=== PATIENT | female | born 1980 | race Caucasian/White ===

== ENCOUNTER 2016-09-06 14:28 | Emergency (ER) | payer MEDICAID ==
--- NOTE | 2016-09-06 15:11 | EDM.PDOC ---
ED HPI LOWER BACK PAIN/INJURY - General Chief Complaint: Back Pain or Injury Stated Complaint: LOWER BACK PAIN Time Seen by Provider: 09/06/16 14:50 Source of Information: Reports: Patient History Limitations: Reports: No limitations - History of Present Illness INITIAL COMMENTS - FREE TEXT/NARRATIVE: HISTORY AND PHYSICAL: History of present illness: [Patient comes to the ER complaining of right low back pain since Saturday morning. She feels her symptoms are gradually worsening rather than improving. She's been using bio freeze, apply heating pad and taking 2 tablets of Tylenol every 6 hours. She continues to experience pain. She denies numbness or tingling. she has no weakness to her back or legs. Pain to her right hip as well. Decreased range of motion due to pain in her back. She denies fever and chills. No recent illness or infections. No recent trauma or falls. Denies any change in bowel or bladder function. Appetite has been normal. Is currently on her period.] Review of systems: As per history of present illness and below otherwise all systems reviewed and negative. Past medical history: As per history of present illness and as reviewed below otherwise noncontributory. Surgical history: As per history of present illness and as reviewed below otherwise noncontributory. Social history: No reported history of drug or alcohol abuse. Family history: As per history of present illness and as reviewed below otherwise noncontributory. Physical exam: HEENT: Atraumatic, normocephalic. Her teeth are decayed and in poor dentition. Oral mucous membranes are pink and moist. no tonsillar swelling erythema or exudate. neck supple, nontender, no lymphadenopathy. Lungs: Clear to auscultation, breath sounds equal bilaterally. Heart: S1S2, regular rate and rhythm. Abdomen: Soft, nondistended, nontender. Negative for costovertebral tenderness. Pelvis: Stable nontender. Genitourinary: Deferred. Rectal: Deferred. Back: Normal in appearance and free from suspicious appearing lesions and rashes. No spinal tenderness with palpation. Mild tenderness with palpation over upper lumbar musculature on the right side. Tender with palpation of her right hip. Decreased range of motion with flexion and extension of low back due to pain to right lumbar area. Pain with right lumbar rotation and lateral flexion. No Contralateral pain Extremities: Atraumatic, without deformity. Patellar reflexes are 2+ and equal bilaterally. Neurovascular unremarkable. Neuro: Awake, alert, oriented. Motor and sensory unremarkable throughout. Exam nonfocal. Diagnostics: [Urinalysis] Therapeutics: [Toradol 60mg IM, Norflex 60mg IM] Impression: [Low back pain] Plan: [Discussed with patient that her low back pain appears to be primarily muscular and that symptoms should resolve within a couple of weeks. Recommend cyclobenzaprine as needed for muscle spasm and diclofenac 3 times a day for inflammation. Written Rx's given for Cyclobenzaprine 10 mg #20 sig one by mouth 3 times a day when necessary spasm zero refills, diclofenac 50 mg #30 sig one by mouth 3 times a day with food, no refills. Recommend continuing normal daily activities and establish care with local PCP. All questions are answered and concerns are addressed.] Definitive disposition and diagnosis as appropriate pending reevaluation and review of above. - Related Data Allergies/ADRs: Allergies Allergy/AdvReac Type Severity Reaction Status Date / Time No Known Allergies Allergy Verified 09/06/16 14:36 Home Meds: Home Meds . 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 Musculoskeletal History: Reports: None Neurological History: Reports: None Psychiatric History: Reports: None Endocrine/Metabolic History: Reports: None Hematologic History: Reports: None Immunologic History: Reports: None Oncologic (Cancer) History: Reports: None Dermatologic History: Reports: None - Infectious Disease History Infectious Disease History: Reports: None - Past Surgical History Head Surgeries/Procedures: Reports: None Social & Family History - Family History Family Medical History: Noncontributory - Tobacco Use Smoking Status *Q: Never Smoker Second Hand Smoke Exposure: Yes - Caffeine Use Caffeine Use: Reports: Coffee Caffeine Use Comment: 2cup/day - Recreational Drug Use Recreational Drug Use: No ED ROS GENERAL - Review of Systems Review Of Systems: ROS reveals no pertinent complaints other than HPI. ED EXAM,LOWER BACK PAIN/INJURY - Physical Exam Exam: See Below Course - Vital Signs Last Recorded V/S: Last Vital Signs Temp 98.1 F 09/06/16 14:30 Pulse 74 09/06/16 14:30 Resp 16 09/06/16 14:30 BP 116/66 09/06/16 14:30 Pulse Ox 100 09/06/16 14:30 - Orders/Labs/Meds Orders: Active Orders 24 hr Category Date Time Status Orphenadrine [Norflex] Med 09/06/16 15:45 Active 60 mg IM Q12H Medication Orders Orphenadrine Citrate (Norflex) 60 mg IM Q12H BREANNA Labs: Laboratory Tests 09/06/16 Range/Units 15:10 Urine Color YELLOW Urine Appearance CLEAR Urine pH 7.0 (5.0-8.0) Ur Specific [place] 1.020 (1.001-1.035) Urine Protein NEGATIVE (NEGATIVE) mg/dL Urine Glucose (UA) NEGATIVE (NEGATIVE) mg/dL Urine Ketones TRACE H (NEGATIVE) mg/dL Urine Occult Blood LARGE H (NEGATIVE) Urine Nitrite NEGATIVE (NEGATIVE) Urine Bilirubin NEGATIVE (NEGATIVE) Urine Urobilinogen 1.0 (<2.0) EU/dL Ur Leukocyte Esterase NEGATIVE (NEGATIVE) Urine RBC 50-60 (0-2/HPF) Urine WBC 0-1 (0-5/HPF) Ur Epithelial Cells FEW (NONE-FEW) Amorphous Sediment LIGHT (NEGATIVE) Urine Bacteria FEW (NEGATIVE) Meds: Medications Generic Name Dose Route Start Last Admin Trade Name Freq PRN Reason Stop Dose Admin Orphenadrine Citrate 60 mg 09/06/16 15:45 Norflex IM Q12H BREANNA Discontinued Medications Generic Name Dose Route Start Last Admin Trade Name Freq PRN Reason Stop Dose Admin Ketorolac Tromethamine 60 mg 09/06/16 15:44 Toradol IM 09/06/16 15:45 ONETIME ONE Departure - Departure Time of Disposition: 15:50 Disposition: Home, Self-Care 01 Condition: good Clinical Impression: Low back pain Qualifiers: Chronicity: acute Back pain laterality: right Sciatica presence: without sciatica Qualified Code(s): M54.5 - Low back pain Referrals: PCP,None [Primary Care Provider] - Forms: ED Department Discharge Additional Instructions: The following information is given to patients seen in the emergency department who are being discharged to home. This information is to outline your options for follow-up care. We provide all patients seen in our emergency department with a follow-up referral. The need for follow-up, as well as the timing and circumstances, are variable depending upon the specifics of your emergency department visit. If you don't have a primary care physician on staff, we will provide you with a referral. We always advise you to contact your personal physician following an emergency department visit to inform them of the circumstance of the visit and for follow-up with them and/or the need for any referrals to a consulting specialist. The emergency department will also refer you to a specialist when appropriate. This referral assures that you have the opportunity for follow-up care with a specialist. All of these measure are taken in an effort to provide you with optimal care, which includes your follow-up. Under all circumstances we always encourage you to contact your private physician who remains a resource for coordinating your care. When calling for follow-up care, please make the office aware that this follow-up is from your recent emergency room visit. If for any reason you are refused follow-up, please contact the [facility] emergency department at and asked to speak to the emergency department charge nurse. [facility] [address] [place] [address] Establish care with a local provider at the clinic listed above. Followup there in 48-72 hours. Take diclofenac 3 times a day with food and Alternate with Tylenol in between doses. Cyclobenzaprine as a muscle relaxer may make you drowsy. Use only as needed for muscle spasm. Return to ER as needed as discussed. - My Orders Last 24 Hours: My Active Orders 09/06/16 15:45 Orphenadrine [Norflex] 60 mg IM Q12H - Assessment/Plan Last 24 Hours: My Active Orders 09/06/16 15:45 Orphenadrine [Norflex] 60 mg IM Q12H
[2016-09-06] MEDS ORDERED: Ketorolac 60 MG/2 ML SDV IM ONE (15:44)
[2016-09-06 16:26] VITALS: BP 100/51
== END 2016-09-06 16:24 | disposition home or self-care (01) ==
LOC: MW.ED 14:28
DX: M54.5 Low back pain (principal); M25.551 Pain in right hip
CPT/HCPCS: 81001; 96372; 99283; J1885; J2360

== ENCOUNTER 2017-11-06 17:42 | Emergency (ER) | payer MEDICAID ==
--- NOTE | 2017-11-06 18:42 | EDM.PDOC ---
ED HPI GENERAL MEDICAL PROBLEM - General Chief Complaint: ENT Problem Stated Complaint: SORE THROAT/PAIN/PRESSURE FACE/HEAD Time Seen by Provider: 11/06/17 17:45 Source of Information: Reports: Patient History Limitations: Reports: No Limitations - History of Present Illness INITIAL COMMENTS - FREE TEXT/NARRATIVE: HISTORY AND PHYSICAL: History of present illness: Patient is a 37-year-old female who presents to the emergency room today with complaints of sore throat, left ear pain, sinus pressure and subjective fevers 2 weeks. She states she has used [id number] products without any relief. Denies any chest pain, shortness of breath, abdominal pain, nausea, vomiting, diarrhea or constipation. States she has been eating and drinking appropriately. Review of systems: As per history of present illness and below otherwise all systems reviewed and negative. Past medical history: As per history of present illness and as reviewed below otherwise noncontributory. Surgical history: As per history of present illness and as reviewed below otherwise noncontributory. Social history: No reported history of drug or alcohol abuse. Family history: As per history of present illness and as reviewed below otherwise noncontributory. Physical exam: General: Developed and well-nourished 37 rolled female. Nontoxic appearing and in no acute distress. HEENT: Atraumatic, normocephalic, pupils equal and reactive bilaterally, negative for conjunctival pallor or scleral icterus, mucous membranes moist, erythema noted to throat without exudate, neck supple, nontender, trachea midline. Tenderness to the maxillary and frontal sinus cavities bilaterally. Mild lymphadenopathy to the mandibular chain bilaterally. No mastoid tenderness. No drooling or trismus noted. No meningeal signs Lungs: Clear to auscultation, breath sounds equal bilaterally, chest nontender. Heart: S1S2, regular rate and rhythm without overt murmur Abdomen: Soft, nondistended, nontender. Negative for masses or hepatosplenomegaly. Negative for costovertebral tenderness. Pelvis: Stable nontender. Genitourinary: Deferred. Rectal: Deferred. Skin: Intact, warm, dry. No lesions or rashes noted. Extremities: Atraumatic, negative for cords or calf pain. Neurovascular unremarkable. Neuro: Awake, alert, oriented. Cranial nerves II through XII unremarkable. Cerebellum unremarkable. Motor and sensory unremarkable throughout. Exam nonfocal. Notes: Due to patient's longevity of symptoms and physical examination and will treat her for sinusitis with Augmentin. She is requesting something for pain. At this time I will give her a limited amount Tylenol with codeine for nighttime use. Medication education was given. She voices understanding and is agreeable to plan of care. She denies any further questions at this time. Diagnostics: None Therapeutics: None Impression: Sinusitis Plan: 1. Please take your antibiotic as prescribed. Warm salt water gargle 3-4 times daily. 2. You may use [id number] Mucinex. Do not take the Tylenol with Codiene when needing to be functioning outside the house as it can cause drowsiness. Do not drive with this medication. 3. Follow-up with your primary caregiver in the next 1-2 days. Return to the ED as needed and as discussed. Definitive disposition and diagnosis as appropriate pending reevaluation and review of above. 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 Musculoskeletal History: Reports: None Neurological History: Reports: None Psychiatric History: Reports: None Endocrine/Metabolic History: Reports: None Hematologic History: Reports: None Immunologic History: Reports: None Oncologic (Cancer) History: Reports: None Dermatologic History: Reports: None - Infectious Disease History Infectious Disease History: Reports: None - Past Surgical History Head Surgeries/Procedures: Reports: None Social & Family History - Family History Family Medical History: Noncontributory - Tobacco Use Smoking Status *Q: Never Smoker Second Hand Smoke Exposure: Yes - Caffeine Use Caffeine Use: Reports: Coffee Caffeine Use Comment: 2cup/day - Recreational Drug Use Recreational Drug Use: No ED ROS ENT - Review of Systems Review Of Systems: ROS reveals no pertinent complaints other than HPI. ED EXAM, ENT - Physical Exam Exam: See Below (See dictation) Course - Vital Signs Last Recorded V/S: Last Vital Signs Temp 98.2 F 11/06/17 19:05 Pulse 77 11/06/17 19:05 Resp 18 11/06/17 19:05 BP 99/59 L 11/06/17 19:05 Pulse Ox 100 11/06/17 19:05 Departure - Departure Time of Disposition: 18:41 Disposition: Home, Self-Care 01 Clinical Impression: Sinusitis Qualifiers: Sinusitis location: unspecified location Chronicity: acute Recurrence: non- recurrent Qualified Code(s): J01.90 - Acute sinusitis, unspecified - Discharge Information Instructions: Sinusitis, Adult, [id number] Referrals: Estevan Calloway MD [Primary Care Provider] - Forms: ED Department Discharge Additional Instructions: The following information is given to patients seen in the emergency department who are being discharged to home. This information is to outline your options for follow-up care. We provide all patients seen in our emergency department with a follow-up referral. The need for follow-up, as well as the timing and circumstances, are variable depending upon the specifics of your emergency department visit. If you don't have a primary care physician on staff, we will provide you with a referral. We always advise you to contact your personal physician following an emergency department visit to inform them of the circumstance of the visit and for follow-up with them and/or the need for any referrals to a consulting specialist. The emergency department will also refer you to a specialist when appropriate. This referral assures that you have the opportunity for follow-up care with a specialist. All of these measure are taken in an effort to provide you with optimal care, which includes your follow-up. Under all circumstances we always encourage you to contact your private physician who remains a resource for coordinating your care. When calling for follow-up care, please make the office aware that this follow-up is from your recent emergency room visit. If for any reason you are refused follow-up, please contact the [facility] Emergency Department at and asked to speak to the emergency department charge nurse. [facility] Primary Care [address] [place] [id number] 1. Please take your antibiotic as prescribed. Warm salt water gargle 3-4 times daily. 2. You may use [id number] Mucinex. Do not take the Tylenol with Codiene when needing to be functioning outside the house as it can cause drowsiness. Do not drive with this medication. 3. Follow-up with your primary caregiver in the next 1-2 days. Return to the ED as needed and as discussed.
[2017-11-06 19:06] VITALS: BP 99/59
== END 2017-11-06 19:09 | disposition home or self-care (01) ==
LOC: MW.ED 17:42
DX: J01.90 Acute sinusitis, unspecified (principal)
CPT/HCPCS: 99282

== ENCOUNTER 2018-03-31 08:02 | Observation (INO) | payer MEDICAID ==
[2018-03-30 13:09] LABS: CHLORIDE,CL 104 mmol/L (98-107); SODIUM,NA 140 mmol/L (136-145)
[~2018-03-31 08:02] MED LIST: Lactated Ringers 1,000 ML IV SCH; Sodium Chloride 0.9% 10 ML Syringe FLUSH PRN; Sodium Chloride 0.9% 2.5 ML Syringe FLUSH PRN
[2018-03-31] MEDS ORDERED: Midazolam 1 MG/ML 2 ML SDV ONE (08:35)
[2018-03-31] MEDS ORDERED: Propofol 200 MG/20 ML SDV ONE (08:35)
[2018-03-31] MEDS ORDERED: fentaNYL 250 MCG/5 ML SDV ONE (08:35)
[2018-03-31] MEDS ORDERED: Succinylcholine 200 MG/10 ML MDV ONE (08:47)
[2018-03-31] MEDS ORDERED: Rocuronium 10 MG/ML 10 ML Syringe ONE (08:47)
[2018-03-31] MEDS ORDERED: Ondansetron 4 MG/2 ML SDV ONE (08:48)
[2018-03-31] MEDS ORDERED: Dexamethasone 4 MG/ML 5 ML MDV ONE (08:48)
[2018-03-31] MEDS ORDERED: ceFAZolin 1 GM in Premix Bag 1 BAG IV ONE (09:00)
--- NOTE | 2018-03-31 09:07 | PCM.PREANE ---
Preanesthetic Assessment - Procedure Proposed Procedure: LAVH, SO, and Cystoscopy - Anesthesia/Transfusion/Family Hx Anesthesia History: Prior Anesthesia Without Reaction Family History of Anesthesia Reaction: No Transfusion History: Prior Transfusion Without Reaction Additional History: blood transfusion 03-26-18 units - Review of Systems General: No Symptoms Pulmonary: No Symptoms Cardiovascular: No Symptoms (since her transfusions), Other (anemia - treated) Gastrointestinal: No Symptoms Neurological: No Symptoms - Physical Assessment NPO Status Date: 03/30/18 NPO Status Time: 22:00 O2 Sat by Pulse Oximetry: 99 Respiratory Rate: 16 Vital Signs: Last Vital Signs Temp 97.3 F 03/31/18 08:20 Pulse 62 03/31/18 08:20 Resp 16 03/31/18 08:20 BP 101/56 L 03/31/18 08:20 Pulse Ox 99 03/31/18 08:20 Height: 5 ft 5 in Weight: 127 lb ASA Class: 2 Mental Status: Alert & Oriented x3 Airway Class: Mallampati = 2 Dentition: Reports: Caries Thyro-Mental Finger Breadths: 3 Mouth Opening Finger Breadths: 3 (recessive lower frontal teeth) Lungs: Clear to Auscultation, Normal Respiratory Effort Cardiovascular: Regular Rate, Regular Rhythm, No Murmurs - Lab Values: Laboratory Last Values WBC 5.58 K/uL (4.0-11.0) 03/30/18 12:42 RBC 5.56 M/uL (4.30-5.90) 03/30/18 12:42 Hgb 12.4 g/dL (12.0-16.0) 03/30/18 12:42 Hct 40.2 % (36.0-46.0) 03/30/18 12:42 MCV 72.3 fL (80.0-98.0) L 03/30/18 12:42 MCH 22.3 pg (27.0-32.0) L 03/30/18 12:42 MCHC 30.8 g/dL (31.0-37.0) L 03/30/18 12:42 RDW Std Deviation 55.3 fl (28.0-62.0) 03/30/18 12:42 RDW Coeff of Swapnil 22 % (11.0-15.0) H 03/30/18 12:42 Plt Count 237 K/uL (150-400) 03/30/18 12:42 MPV 9.50 fL (7.40-12.00) 03/30/18 12:42 Nucleated RBC % 0.0 /100WBC 03/30/18 12:42 Nucleated RBCs # 0 K/uL 03/30/18 12:42 Sodium 140 mmol/L (136-145) 03/30/18 12:42 Potassium 4.0 mmol/L (3.5-5.1) 03/30/18 12:42 Chloride 104 mmol/L (98-107) 03/30/18 12:42 Carbon Dioxide 28.5 mmol/L (21.0-32.0) 03/30/18 12:42 BUN 9 mg/dL (7.0-18.0) 03/30/18 12:42 Creatinine 0.6 mg/dL (0.6-1.0) 03/30/18 12:42 Est Cr Clr Drug Dosing TNP 03/30/18 12:42 Estimated GFR (MDRD) > 60.0 ml/min 03/30/18 12:42 Glucose 70 mg/dL (74-106) L 03/30/18 12:42 Calcium 9.3 mg/dL (8.5-10.1) 03/30/18 12:42 HCG, Qual NEGATIVE (NEG) 03/30/18 12:42 Blood Type O POSITIVE 03/30/18 12:42 Antibody Screen NEGATIVE 03/30/18 12:42 - Allergies Allergies/Adverse Reactions: Allergies Allergy/AdvReac Type Severity Reaction Status Date / Time No Known Allergies Allergy Verified 03/31/18 08:26 - Blood Blood Available: Yes Product(s) Available: PRBC (T and S) - Anesthesia Plan Pre-Op Medication Ordered: None - Acknowledgements Anesthesia Type Planned: General Anesthesia (OET) Pt an Appropriate Candidate for the Planned Anesthesia: Yes Alternatives and Risks of Anesthesia Discussed w Pt/Guardian: Yes Pt/Guardian Understands and Agrees with Anesthesia Plan: Yes PreAnesthesia Questionnaire - Past Health History Medical/Surgical History: Denies Medical/Surgical History HEENT History: Reports: None Other HEENT History: wears glasses Cardiovascular History: Reports: None Respiratory History: Reports: None Gastrointestinal History: Reports: None Genitourinary History: Reports: Pyelonephritis FAMILY SPECIALIST History: Reports: None Musculoskeletal History: Reports: None Neurological History: Reports: None Psychiatric History: Reports: None Endocrine/Metabolic History: Reports: None Hematologic History: Reports: None Immunologic History: Reports: None Oncologic (Cancer) History: Reports: None Dermatologic History: Reports: None - Infectious Disease History Infectious Disease History: Reports: None - Past Surgical History Head Surgeries/Procedures: Reports: None Female Surgical History: Reports: Breast Biopsy - SUBSTANCE USE Smoking Status *Q: Never Smoker Recreational Drug Use History: No - HOME MEDS Home Medications: Home Meds Iron 1 tab PO DAILY 03/27/18 [History] Vitamin C With Zinc 1 tab PO DAILY 03/27/18 [History] - CURRENT (IN HOUSE) MEDS Current Meds: Current Medications Cefazolin Sodium/Dextrose 1 gm (/ Premix) 50 mls @ 100 mls/hr IV ONETIME ONE Stop: 03/31/18 09:29 Lactated Ringer's (Ringers, Lactated) 1,000 mls @ 125 mls/hr IV ASDIRECTED BREANNA Last Admin: 03/31/18 08:28 Dose: 125 mls/hr Sodium Chloride (Saline Flush) 10 ml FLUSH ASDIRECTED PRN PRN Reason: Keep Vein Open Sodium Chloride (Saline Flush) 2.5 ml FLUSH ASDIRECTED PRN PRN Reason: Keep Vein Open Discontinued Medications Dexamethasone (Dexamethasone) Confirm Administered Dose 20 mg .ROUTE .STK-MED ONE Stop: 03/31/18 08:49 Fentanyl (Sublimaze) Confirm Administered Dose 250 mcg .ROUTE .STK-MED ONE Stop: 03/31/18 08:36 Lidocaine HCl (Xylocaine-Mpf 1%) Confirm Administered Dose 5 mls @ as directed .ROUTE .STK-MED ONE Stop: 03/31/18 08:42 Midazolam HCl (Versed 1 Mg/Ml) Confirm Administered Dose 2 mg .ROUTE .STK-MED ONE Stop: 03/31/18 08:36 Ondansetron HCl (Zofran) Confirm Administered Dose 4 mg .ROUTE .STK-MED ONE Stop: 03/31/18 08:49 Propofol (Diprivan 20 Ml) Confirm Administered Dose 200 mg .ROUTE .STK-MED ONE Stop: 03/31/18 08:36 Rocuronium [place] (Zemuron) Confirm Administered Dose 100 mg .ROUTE .STK-MED ONE Stop: 03/31/18 08:48 Succinylcholine Chloride (Quelicin) Confirm Administered Dose 200 mg .ROUTE .STK -MED ONE Stop: 03/31/18 08:48
[2018-03-31] MEDS ORDERED: Methylene Blue 50 MG/10 ML Ampule ONE (09:24)
[2018-03-31] MEDS ORDERED: Bupivacaine 0.25% 10 ML SDV ONE (09:24)
[2018-03-31] MEDS ORDERED: Glycopyrrolate 0.2 MG/ML SDV ONE (09:42)
[2018-03-31] MEDS ORDERED: Neostigmine Methylsulfate 1 MG/ML 5 ML Syringe ONE (09:42)
[2018-03-31] MEDS ORDERED: fentaNYL 100 MCG/2 ML SDV IVPUSH PRN (10:36)
[2018-03-31] MEDS ORDERED: ePHEDrine 50 MG/ML SDV ONE (11:40)
[2018-03-31] MEDS ORDERED: Furosemide 40 MG/4 ML VIAL ONE ×2 (11:47→16:36)
[2018-03-31] MEDS ORDERED: Fluorescein 5 ML Vial ONE (11:47)
[2018-03-31] MEDS ORDERED: Iopamidol 408 MG/ML 50 ML SDV ONE (12:47)
[2018-03-31] MEDS ORDERED: HYDROmorphone 2 MG/ML SDV ONE (12:58)
[2018-03-31] MEDS ORDERED: Sodium Chloride 0.9% 20 ML ONE (12:59)
[2018-03-31] MEDS ORDERED: ceFAZolin 1 GM Vial ONE (13:48)
[2018-03-31] MEDS ORDERED: Phenylephrine/Normal Saline 100 MCG/ML 10 ML Syringe ONE (14:14)
[2018-03-31] MEDS ORDERED: Ondansetron 4 MG/2 ML SDV IVPUSH PRN (17:55)
[2018-03-31] MEDS ORDERED: Promethazine 25 MG/ML SDV IM PRN (17:55)
[2018-03-31] MEDS ORDERED: Morphine 4 MG/ML Syringe IVPUSH PRN (17:55)
--- NOTE | 2018-03-31 18:09 | PCM.OPNOTE ---
- General Post-Op/Procedure Note Date of Surgery/Procedure: 03/31/18 Operative Procedure(s): Laparoscopic assisted Vaginal hysterectomy with bilateral salpingectomy and Cystoscopy Findings: Bulky10 weeks size uterus, mal rotated to the patient's left. Normal ovaries and tubes bilaterally No efflux of dye from right ureteric orifice on cytoscopy- Intraop Urology consult by Dr Naidu. Please refer to his documentation for procedures performed by him Pre Op Diagnosis: Menorrhagia. Uterine myoma Post-Op Diagnosis: Same Anesthesia Technique: General ET Tube Primary Surgeon: Rhonda Ansari Asphalt Screed Operator: Corry Bland Pathology: Uterus, Cervix and tubes Fluid Replacement, Intraop: 4,100 EBL in mLs: 150 Complications: Right ureteric injury Condition: Good Free Text/Narrative:: Intake & Output 03/31/18 03/31/18 03/31/18 06:59 14:59 22:59 Output Total 250 Balance -250
[2018-03-31] MEDS ORDERED: Ketorolac 30 MG/ML SDV ONE (18:18)
[2018-03-31] MEDS: Ketorolac 30 MG/ML SDV IVPUSH SCH ×2 (18:20→23:09)
--- NOTE | 2018-03-31 18:21 | PCM.POSTAN ---
POST ANESTHESIA ASSESSMENT - MENTAL STATUS Mental Status: Alert, Oriented - VITAL SIGNS SaO2: 92 (Rm air) - RESPIRATORY Respiratory Status: Respiratory Rate WNL, Airway Patent, O2 Saturation Stable - CARDIOVASCULAR CV Status: Pulse Rate WNL, Blood Pressure Stable - GASTROINTESTINAL GI Status: No Symptoms - POST OP HYDRATION Hydration Status: Adequate & Stable
[2018-03-31] MEDS: Lactated Ringers 1,000 ML IV SCH (19:55)
[2018-03-31] MEDS: ceFAZolin 1 GM in Premix Bag 1 BAG IV SCH (19:56)
--- NOTE | 2018-03-31 22:41 | PCM.SN ---
- Free Text/Narrative Note: Patient evaluated at bedside. Sleepy. Reports that her pain is well controlled, just feeling a bit dizzy and feeling slightly nauseous. Declined antiemetic. Vital signs stable. Adequate urine output- blood tinged. Briefly reviewed procedures performed, outcomes and expected hospital course. Patient has no questions at this time. Will continue current post care
[2018-04-01] MEDS: ceFAZolin 1 GM in Premix Bag 1 BAG IV SCH ×2 (01:10→17:53)
--- NOTE | 2018-04-01 01:31 | OR ---
SURGEON: Kevin Naidu M.D. DATE OF PROCEDURE: 03/31/2018 PREOPERATIVE DIAGNOSIS: Ureteral injury. POSTOPERATIVE DIAGNOSIS: Ureteral injury. PROCEDURE PERFORMED: Repair of ureteral injury plus cystoscopy. DESCRIPTION OF PROCEDURE: The patient was already under anesthesia. She had LAVH. There was nothing coming out of the right ureter. So, I was asked to come in and consult. I did a cystoscopy and could not get anything through the right ureter. 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 I did right retrograde pyelogram, which showed the extravasation and nothing into the proximal segment of ureter, so the conclusion was the ureter was transected. At that point, the decision was made to go ahead and explore the pelvis and repair the ureter, so the incision was done in a Pfannenstiel-type incision. The fascia was opened in the midline. The right pelvis was explored. The ureter was identified and indeed was transected. The distal end of the ureter could not be identified until the bladder was opened, and the ureter was cannulated, but then went only a short distance, and it would have taken additional time and effort to dissect the ureter away from the base of the bladder, so I decided to do ureteral reimplantation in the base of the bladder with the posterior wall of the bladder on the right side. The bladder was perforated, and a big enough hiatus was created. The ureter was pulled through and spatulated and secured in place with 6 sutures of 4-0 chromic full-thickness sutures. The peritoneum that was opened previously was closed using 3-0 chromic running sutures. The bladder was then closed in 2 layers, 3-0 chromic running suture for the mucosa and 2-0 chromic running suture for the muscularis and adventitia. [place] drain was left in the right hemipelvis, brought to the outside through a separate stab wound incision. The fascia was closed with a running suture of #1 PDS. The subcutaneous tissues were reapproximated with 3-0 chromic. Skin was closed by Dr. Ansari, and the catheter will be placed in and will be left in for 5 days. YORDY / REESE /[id number]
--- NOTE | 2018-04-01 02:40 | OR ---
SURGEON: Rhonda Ansari MD DATE OF PROCEDURE: 03/31/2018 TEACHER DRAMATICS: Dr. Corry Bland. INTRA-OP CONSULTATION: Dr. Naidu, urologist. PREOPERATIVE DIAGNOSES: 1. Menorrhagia. 2. Submucosa uterine fibroids. POSTOPERATIVE DIAGNOSES: 1. Menorrhagia. 2. Submucosa uterine fibroids. PROCEDURE PERFORMED: 1. Laparoscopic-assisted vaginal hysterectomy with bilateral salpingectomy. 2. Cystoscopy. ANESTHESIA: General endotracheal. ESTIMATED BLOOD LOSS: 150 mL, IV FLUIDS: 4000 mL crystalloid. COMPLICATIONS: Right ureteric injury. FINDINGS: Bulky uterus and cervix. Uterus of approximately 10 week size, mal-rotated to the patient's left. Normal-appearing tubes and ovaries bilaterally. No evidence of bladder mucosa trauma with copious flow of fluorescent yellow dye from the left ureteric orifice, but no efflux of dye from the right ureteric orifice. DISPOSITION: Stable to recovery room. BRIEF HISTORY: The patient is a 37-year-old lady with a longstanding history of menorrhagia secondary to symptomatic fibroids, which had led to iron-deficiency anemia requiring blood transfusions. She continued to bleed despite Lupron injections and after discussing management options with the patient, she opted to proceed with hysterectomy with removal of her tubes. The patient understands that a hysterectomy will render her sterile. She is a mother of 5 children, the last childbirth was 10 years ago, and she is adamant that her family is complete. Risks and alternatives to surgery were discussed extensively with her including but not limited to bleeding, infection, injury to bowel, ureter, bladder, blood vessels, and other vital organs, the risk of thromboembolic events and also the risk of anesthesia. She consented to proceed with the surgery. Her preop hemoglobin 2 weeks prior to surgery was 7.4 g/dL and she was transfused 3 units of packed red blood cells a week prior to the planned procedure with a resultant hemoglobin of 12 g/dL. DESCRIPTION OF PROCEDURE: The patient was taken to the operating room, where induction of general anesthesia was performed without difficulty. She was placed in dorsal lithotomy position after adequate level of anesthesia. The abdomen, perineum, and vagina were prepped in the usual sterile fashion for laparoscopic vaginal surgery. A Fuentes catheter was placed and backfilled with 30 mL of dilute methylene blue dye. She received 1 g of Ancef and SCDs were in place. Appropriate time- out was held. A bimanual examination revealed a mobile uterus approximately 10 weeks' size. A open side bivalve speculum was then placed into the vagina and the anterior lip of the cervix was grasped with an Allis clamp. The uterus was sounded and a ZUMI uterine manipulator was placed into the cavity to aid uterine manipulation. The instruments and the Allis clamp were then removed. Web Operations Administrator's glove was changed. The attention was turned to the abdomen, where the infraumbilical area was infiltrated with 0.25% of Marcaine. A 5 mm incision was made with a scalpel. Tenting the anterior abdominal wall upwards, a Veress needle was introduced into the abdominal cavity with an opening pressure of 5 mmHg noted. CO2 insufflation was performed and an adequate pneumoperitoneum of 13 mmHg was achieved. A 5 mm port was then placed through this incision and correct placement was confirmed with the laparoscope. Two additional incisions were placed under direct visualization, 2 cm medial and cephalad from the anterior superior iliac spine on both the right and the left side. The uterus was lifted and elevated out of the pelvis and inspected with the aforementioned findings noted. The ureters were identified on either sides. Starting from the left side, the left fallopian tube was grasped with an atraumatic grasper and the routine salpingectomy was performed ligating and cutting along the mesosalpinx using a 5 mm ligature device until the cornua of the uterus was reached. The round ligament was then grasped and ligated and cut and the anterior lip of the broad ligament was incised and a bladder flap was created. The posterior lip of the broad ligament was also incised exposed the the uterine vessels. Once the vessels were skeletonized adequately, the vessels were then double ligated and cut. This process was repeated on the right side and the bladder flap was completed anteriorly. Once this was completed, the abdomen was desufflated and all the instruments were removed from the abdomen. Attention was then turned to the vagina to complete the surgery. A weighted speculum was placed into the vagina posteriorly. The bladder was released. Using lateral wall retractors, the vaginal meyer were retracted both anteriorly and laterally. Tesfaye tenaculum were then used to grasp the cervix anteriorly and posteriorly. The cervix was then circumscribed using electrocautery. The vaginal mucosa was pushed away anteriorly and posteriorly. The posterior cul-de-sac was then entered sharply performing the colpotomy and the weighted speculum was exchanged for a Roman-Auvard speculum which was placed into the peritoneal cavity. Anterior colpotomy was performed easily by sharp dissection, making sure that the finger was palpated along the dissection that had been made laparoscopically. A right angle retractor was then placed anteriorly pushing the bladder cephalad. The uterosacral ligaments on both sides were crossclamped with a Uriah clamp, cut, and ligated using Uriah suture of 2-0 Polysorb. Additional pedicle was taken on the patient's right side with a Uriah due to an active bleeding vessel. The area was then hemostatic. Once this was completed, the uterus with tubes attached was delivered vaginally, removed from the surgical site. The pedicles were examined and an additional suture had to be placed on the left side to control the bleeding vessel. The retained uterosacral ligaments were then attached to the vaginal apices bilaterally. The pedicles were re-examined and found to be completely hemostatic. The cuff was then closed with a running locked suture of 0 Polysorb. The catheter was removed from the bladder and the cystoscope was performed after intravenous fluorescein dye and Lasix had been given. There was copious flow of yellow fluorescent dye noted from the left ureteric orifice, but none from the right ureteric orifice. After several minutes of watching emptying the bladder and re - inspecting the right side, an intra-op consultation was called to the urologist, Dr. Naidu. While we were waiting for the urologist, an evaluation was performed laparoscopically and noted that the right ureter was not peristalsing, but the left was noted to be peristalsing. I then decided to release the sutures on the right side in case the ureter had been caught or kinked in one of the sutures on the right side. This was done under direct visualization laparoscopically and the vaginal cuff was re-opened from the right side to the midline and the sutures on the right side were taken down. The urologist had arrived at this junction and advised that we should go ahead and repeat the cystoscopy. The cystoscopy was repeated, but still there was no efflux of urine from the right side. He then took over the procedure and went ahead to perform a cystoscopy and other procedures to ascertain patency of the right ureter. The patency of the right ureter was not established with various procedures by the urologist. At this juncture, a decision was made to go ahead and perform an exploratory laparotomy with the aim of identifying the ureter and performing the necessary repair. I then re-closed the vaginal cuff with 0 Polysorb running locked sutures and all instruments were removed from the patient's vagina. The laparoscopic skin incisions were closed with subcuticular stitches of 4-0 Monocryl suture and dressed. The patient was repositioned in the supine position and the laparotomy was then commenced. Please refer to Dr. Naidu's records for documentation of the procedures performed. Sponge, instrument, and needle counts were correct at the end of the procedure. ADUMVIV / MODL /[id number] MTDD
[2018-04-01] MEDS: Lactated Ringers 1,000 ML IV SCH (05:04)
[2018-04-01] MEDS: Ketorolac 30 MG/ML SDV IVPUSH SCH ×2 (05:05→12:23)
[2018-04-01 05:54] LABS: CHLORIDE,CL 105 mmol/L (98-107); SODIUM,NA 141 mmol/L (136-145)
[2018-04-01] MEDS: Acetaminophen/oxyCODONE 325-5 MG Tab PO PRN ×2 (06:50→20:07)
--- NOTE | 2018-04-01 08:31 | PCM.SURGPN ---
- General Info Date of Service: 04/01/18 POD#: 1 Functional Status: Reports: Pain Controlled, Tolerating Diet (Clears- yet to have breakfast), Other (OOB-> chair) - Review of Systems General: Reports: Fatigue. Denies: Fever, Chills HEENT: Denies: Headaches Pulmonary: Denies: Shortness of Breath, Pleuritic Chest Pain Cardiovascular: Denies: Chest Pain, Palpitations, Dyspnea on Exertion Gastrointestinal: Reports: Abdominal Pain (Along incision site) Genitourinary: Denies: Flank Pain - Patient Data Vitals - Most Recent: Last Vital Signs Temp 36.3 C 04/01/18 06:18 Pulse 59 L 04/01/18 06:18 Resp 16 04/01/18 06:18 BP 110/62 04/01/18 06:18 Pulse Ox 97 04/01/18 06:18 Weight - Most Recent: 127 lb I&O - Last 24 Hours: Intake & Output 03/31/18 04/01/18 04/01/18 22:59 06:59 14:59 Intake Total 8700 1229 Output Total 360 900 Balance 8340 329 Lab Results Last 24 Hrs: Laboratory Results - last 24 hr 04/01/18 04/01/18 Range/Units 05:02 05:02 WBC 12.15 H (4.0-11.0) K/uL RBC 4.12 L (4.30-5.90) M/uL Hgb 9.0 L (12.0-16.0) g/dL Hct 29.5 L (36.0-46.0) % MCV 71.6 L (80.0-98.0) fL MCH 21.8 L (27.0-32.0) pg MCHC 30.5 L (31.0-37.0) g/dL RDW Std Deviation 57.5 (28.0-62.0) fl RDW Coeff of Swapnil 22 H (11.0-15.0) % Plt Count 165 (150-400) K/uL MPV 9.60 (7.40-12.00) fL Neut % (Auto) 83.7 H (48.0-80.0) % Lymph % (Auto) 10.4 L (16.0-40.0) % [place] % (Auto) 5.8 (0.0-15.0) % Eos % (Auto) 0.0 (0.0-7.0) % Baso % (Auto) 0.1 (0.0-1.5) % Neut # (Auto) 10.2 H (1.4-5.7) K/uL Lymph # (Auto) 1.3 (0.6-2.4) K/uL [place] # (Auto) 0.7 (0.0-0.8) K/uL Eos # (Auto) 0.0 (0.0-0.7) K/uL Baso # (Auto) 0.0 (0.0-0.1) K/uL Nucleated RBC % 0.0 /100WBC Nucleated RBCs # 0 K/uL Sodium 141 (136-145) mmol/L Potassium 3.5 (3.5-5.1) mmol/L Chloride 105 (98-107) mmol/L Carbon Dioxide 29.9 (21.0-32.0) mmol/L BUN 7 (7.0-18.0) mg/dL Creatinine 0.6 (0.6-1.0) mg/dL Est Cr Clr Drug Dosing 117.76 mL/min Estimated GFR (MDRD) > 60.0 ml/min Glucose 115 H (74-106) mg/dL Calcium 8.2 L (8.5-10.1) mg/dL Med Orders - Current: Current Medications Lactated Ringer's (Ringers, Lactated) 1,000 mls @ 125 mls/hr IV ASDIRECTED [facility] Last Admin: 04/01/18 05:04 Dose: 125 mls/hr Ibuprofen (Motrin) 800 mg PO Q6H PRN PRN Reason: Pain (mild 1-3) Ketorolac Tromethamine (Toradol) 30 mg IVPUSH Q6H [facility] Stop: 04/01/18 12:01 Last Admin: 04/01/18 05:05 Dose: 30 mg Morphine Sulfate (Morphine) 4 mg IVPUSH Q2H PRN PRN Reason: Pain (severe 7-10) Ondansetron HCl (Zofran) 4 mg IVPUSH Q6H PRN PRN Reason: Nausea/Vomiting Last Admin: 04/01/18 05:05 Dose: 4 mg Oxycodone/Acetaminophen (Percocet 325-5 Mg) 1 tab PO Q4H PRN PRN Reason: Pain (moderate 4-6) Oxycodone/Acetaminophen (Percocet 325-5 Mg) 2 tab PO Q4H PRN PRN Reason: Pain (moderate 4-6) Last Admin: 04/01/18 06:50 Dose: 2 tab Promethazine HCl (Phenergan) 25 mg IM Q6H PRN PRN Reason: Nausea/Vomiting Discontinued Medications Bupivacaine HCl (Sensorcaine-Mpf 0.25%) Confirm Administered Dose 20 ml .ROUTE .STK-MED ONE Stop: 03/31/18 09:25 Cefazolin Sodium (Ancef) Confirm Administered Dose 1 gm .ROUTE .STK-MED ONE Stop: 03/31/18 13:49 Dexamethasone (Dexamethasone) Confirm Administered Dose 20 mg .ROUTE .STK-MED ONE Stop: 03/31/18 08:49 Ephedrine Sulfate (Ephedrine Sulfate) Confirm Administered Dose 50 mg .ROUTE .STK-MED ONE Stop: 03/31/18 11:41 Fentanyl (Sublimaze) Confirm Administered Dose 250 mcg .ROUTE .STK-MED ONE Stop: 03/31/18 08:36 Fentanyl (Sublimaze) 50 mcg IVPUSH Q5M PRN PRN Reason: Pain (severe 7-10) Stop: 03/31/18 13:00 Fluorescein Sodium (Ak-Fluor) Confirm Administered Dose 5 ml .ROUTE .STK-MED ONE Stop: 03/31/18 11:48 Furosemide (Lasix) Confirm Administered Dose 40 mg .ROUTE .STK-MED ONE Stop: 03/31/18 11:48 Furosemide (Lasix) Confirm Administered Dose 40 mg .ROUTE .STK-MED ONE Stop: 03/31/18 16:37 Glycopyrrolate (Robinul) Confirm Administered Dose 0.2 mg .ROUTE .STK-MED ONE Stop: 03/31/18 09:43 Hydromorphone HCl (Dilaudid) Confirm Administered Dose 2 mg .ROUTE .STK-MED ONE Stop: 03/31/18 12:59 Cefazolin Sodium/Dextrose 1 gm (/ Premix) 50 mls @ 100 mls/hr IV ONETIME ONE Stop: 03/31/18 09:29 Last Admin: 03/31/18 20:04 Dose: Not Given Lactated Ringer's (Ringers, Lactated) 1,000 mls @ 125 mls/hr IV ASDIRECTED [facility] Last Admin: 03/31/18 08:28 Dose: 125 mls/hr Lidocaine HCl (Xylocaine-Mpf 1%) Confirm Administered Dose 5 mls @ as directed .ROUTE .STK-MED ONE Stop: 03/31/18 08:42 Cefazolin Sodium/Dextrose (Ancef) Confirm Administered Dose 50 mls @ as directed .ROUTE .ST-MED ONE Stop: 03/31/18 09:26 Sodium Chloride (Normal Saline) Confirm Administered Dose 20 mls @ as directed .ROUTE .ST-MED ONE Stop: 03/31/18 13:00 Cefazolin Sodium/Dextrose 1 gm (/ Premix) 50 mls @ 100 mls/hr IV Q6H [facility] Stop: 04/01/18 02:29 Last Admin: 04/01/18 01:10 Dose: 100 mls/hr Iopamidol (Isovue-200 (41%)) Confirm Administered Dose 50 ml .ROUTE .ST-MED ONE Stop: 03/31/18 12:48 Ketorolac Tromethamine (Toradol) Confirm Administered Dose 30 mg .ROUTE .ST- MED ONE Stop: 03/31/18 18:19 Last Admin: 03/31/18 19:58 Dose: Not Given Methylene Blue (Provayblue) Confirm Administered Dose 50 mg .ROUTE .ST-MED ONE Stop: 03/31/18 09:25 Midazolam HCl (Versed 1 Mg/Ml) Confirm Administered Dose 2 mg .ROUTE .ST-MED ONE Stop: 03/31/18 08:36 Neostigmine Methylsulfate (Neostigmine) Confirm Administered Dose 5 mg .ROUTE .ST-MED ONE Stop: 03/31/18 09:43 Ondansetron HCl (Zofran) Confirm Administered Dose 4 mg .ROUTE .ST-MED ONE Stop: 03/31/18 08:49 Phenylephrine HCl (Phenylephrine In Ns 100 Mcg/Ml) Confirm Administered Dose 1 mg .ROUTE .STK-MED ONE Stop: 03/31/18 14:15 Propofol (Diprivan 20 Ml) Confirm Administered Dose 200 mg .ROUTE .STK-MED ONE Stop: 03/31/18 08:36 Rocuronium [place] (Zemuron) Confirm Administered Dose 100 mg .ROUTE .STK-MED ONE Stop: 03/31/18 08:48 Sodium Chloride (Saline Flush) 10 ml FLUSH ASDIRECTED PRN PRN Reason: Keep Vein Open Sodium Chloride (Saline Flush) 2.5 ml FLUSH ASDIRECTED PRN PRN Reason: Keep Vein Open Succinylcholine Chloride (Quelicin) Confirm Administered Dose 200 mg .ROUTE .STK -MED ONE Stop: 03/31/18 08:48 - Exam Wound/Incisions: Dressing Dry and Intact, Drainage (from janusz drain- minimal) General: Alert, Oriented Lungs: Clear to Auscultation, Normal Respiratory Effort Cardiovascular: Regular Rate, Regular Rhythm GI/Abdominal Exam: Normal Bowel Sounds, Soft, Non-Tender Extremities: Non-Tender Skin: Warm Psy/Mental Status: Alert, Normal Affect, Normal Mood - Problem List & Annotations (1) S/P laparoscopic assisted vaginal hysterectomy (LAVH) SNOMED Code(s): 203189635, 05242833, 152726963 Code(s): Z90.710 - ACQUIRED ABSENCE OF BOTH CERVIX AND UTERUS Status: Acute Current Visit: Yes (2) Status post bilateral salpingectomy SNOMED Code(s): 291137518, 120272030 Code(s): Z90.79 - ACQUIRED ABSENCE OF OTHER GENITAL ORGAN(S) Status: Acute Current Visit: Yes (3) S/P ureteral reimplantation SNOMED Code(s): 425375438, 084298373, 999811358 Code(s): Z98.890 - OTHER SPECIFIED POSTPROCEDURAL STATES Status: Acute Current Visit: Yes - Problem List Review Problem List Initiated/Reviewed/Updated: Yes - My Orders Last 24 Hours: Active Orders 24 hr Category Date Time Status Patient Status [ADT] Routine ADT 03/31/18 17:55 Active Intake and Output [RC] Q12H Care 03/31/18 17:56 Active May Shower [RC] ASDIRECTED Care 03/31/18 17:55 Active Notify Provider Intake and Out [RC] ASDIRECTED Care 03/31/18 17:55 Active Notify Provider Vital Signs [RC] ASDIRECTED Care 03/31/18 17:55 Active Oxygen Therapy [RC] ASDIRECTED Care 03/31/18 17:55 Active Procedure Prep Instructions [RC] PER UNIT ROUTINE Care 03/31/18 08:00 Inactive Procedure Site Prep Instruct [RC] PER UNIT ROUTINE Care 03/31/18 08:00 Inactive RT Incentive Spirometry [RC] Q2HWA Care 03/31/18 17:55 Active Up With Assistance [RC] PER UNIT ROUTINE Care 03/31/18 17:55 Active Up ad Simran [RC] PER UNIT ROUTINE Care 03/31/18 17:55 Active Verify Patient Consent Obtain [RC] PER UNIT ROUTINE Care 03/31/18 08:00 Inactive Vital Signs [RC] PER UNIT ROUTINE Care 03/31/18 08:00 Inactive Vital Signs [RC] PER UNIT ROUTINE Care 03/31/18 17:55 Active Regular Diet [DIET] Diet 04/01/18 Breakfast Active Fluoro Up To 1Hr [CR] Routine Exams 03/31/18 20:57 Ordered Acetaminophen/oxyCODONE [Percocet 325-5 MG] Med 03/31/18 17:55 Active 1 tab PO Q4H PRN Acetaminophen/oxyCODONE [Percocet 325-5 MG] Med 03/31/18 17:55 Active 2 tab PO Q4H PRN Ibuprofen [Motrin] Med 04/01/18 18:01 Active 800 mg PO Q6H PRN Ketorolac [Toradol] Med 03/31/18 18:00 Active 30 mg IVPUSH Q6H Lactated Ringers [Ringers, Lactated] 1,000 ml Med 03/31/18 18:00 Active IV ASDIRECTED Morphine Med 03/31/18 17:55 Active 4 mg IVPUSH Q2H PRN Ondansetron [Zofran] Med 03/31/18 17:55 Active 4 mg IVPUSH Q6H PRN Promethazine [Phenergan] Med 03/31/18 17:55 Active 25 mg IM Q6H PRN Peripheral IV Discontinue [OM.PC] Routine Oth 03/31/18 17:55 Ordered Sequential Compression Device [OM.PC] Per Unit Routine Oth 03/31/18 17:55 Ordered Resuscitation Status Routine Resus Stat 03/31/18 17:55 Ordered Medication Orders Lactated Ringer's (Ringers, Lactated) 1,000 mls @ 125 mls/hr IV ASDIRECTED [facility] Last Admin: 04/01/18 05:04 Dose: 125 mls/hr Infusion: 04/01/18 03:55 Dose: 125 mls/hr Admin: 03/31/18 19:55 Dose: 125 mls/hr Ibuprofen (Motrin) 800 mg PO Q6H PRN PRN Reason: Pain (mild 1-3) Ketorolac Tromethamine (Toradol) 30 mg IVPUSH Q6H [facility] Stop: 04/01/18 12:01 Last Admin: 04/01/18 05:05 Dose: 30 mg Admin: 03/31/18 23:09 Dose: 30 mg Admin: 03/31/18 18:20 Dose: 30 mg Morphine Sulfate (Morphine) 4 mg IVPUSH Q2H PRN PRN Reason: Pain (severe 7-10) Ondansetron HCl (Zofran) 4 mg IVPUSH Q6H PRN PRN Reason: Nausea/Vomiting Last Admin: 04/01/18 05:05 Dose: 4 mg Oxycodone/Acetaminophen (Percocet 325-5 Mg) 1 tab PO Q4H PRN PRN Reason: Pain (moderate 4-6) Oxycodone/Acetaminophen (Percocet 325-5 Mg) 2 tab PO Q4H PRN PRN Reason: Pain (moderate 4-6) Last Admin: 04/01/18 06:50 Dose: 2 tab Promethazine HCl (Phenergan) 25 mg IM Q6H PRN PRN Reason: Nausea/Vomiting - Assessment Assessment (Free Text/Narrative):: POD#1 s/ p LAVH with bilateral salpingectomy complicated by right ureteral injury with reimplantation. Patient is stable and doing well. Hgb: 9g/dl and BUN - WNL - Plan Plan (Free Text/Narrative):: Saline lock Encourage ambulation Continue current postop care.
--- NOTE | 2018-04-01 09:33 | PCM48HPAN ---
Post Anesthesia Note - EVALUATION WITHIN 48HRS OF ANESTHETIC Vital Signs in Normal Range: Yes Patient Participated in Evaluation: Yes Respiratory Function Stable: Yes Airway Patent: Yes Cardiovascular Function Stable: Yes Hydration Status Stable: Yes Pain Control Satisfactory: Yes Nausea and Vomiting Control Satisfactory: Yes Resp Rate: 16 - COMMENTS/OBSERVATIONS Free Text/Narrative:: labs good since limited blood loss for case.
--- NOTE | 2018-04-01 11:51 | PCM.SN ---
- Free Text/Narrative Note: post op day one stable afebrile doing well , lungs clear, good bowel sounds
[2018-04-01] MEDS: Ibuprofen 800 MG Tab PO PRN (16:28)
--- NOTE | 2018-04-01 16:29 | CR ---
EXAMINATION: Pelvis HISTORY: Ureteroscopy COMPARISON: None TECHNIQUE: 4 images provided FINDINGS/IMPRESSION: Operative control films demonstrate instrumentation projecting over the right re nal pelvis. Subsequent contrast administration is noted. Passage of contrast into the ureter is not c onfirmed.
[2018-04-01] MEDS ORDERED: Morphine 2 MG/ML Syringe IVPUSH ONE (16:58)
[2018-04-02] MEDS: ceFAZolin 1 GM in Premix Bag 1 BAG IV SCH ×3 (00:22→17:16)
[2018-04-02] MEDS: Acetaminophen/oxyCODONE 325-5 MG Tab PO PRN ×4 (04:10→19:13)
--- NOTE | 2018-04-02 12:57 | PCM.SURGPN ---
- General Info Date of Service: 04/02/18 POD#: 1 Functional Status: Reports: Pain Controlled, Tolerating Diet, Ambulating - Review of Systems General: Denies: Fever, Malaise HEENT: Denies: Headaches Pulmonary: Denies: Shortness of Breath Cardiovascular: Denies: Chest Pain, Palpitations, Dyspnea on Exertion Gastrointestinal: Denies: Abdominal Pain Genitourinary: Denies: Flank Pain Musculoskeletal: Denies: Neck Pain Neurological: Denies: Confusion - Patient Data Vitals - Most Recent: Last Vital Signs Temp 36.2 C 04/02/18 11:15 Pulse 76 04/02/18 11:15 Resp 20 04/02/18 11:15 BP 107/54 L 04/02/18 11:15 Pulse Ox 96 04/02/18 11:15 Weight - Most Recent: 132 lb 1.6 oz I&O - Last 24 Hours: Intake & Output 04/01/18 04/02/18 04/02/18 22:59 06:59 14:59 Intake Total 1115 600 Output Total 2200 850 Balance -1085 -250 Med Orders - Current: Current Medications Cefazolin Sodium/Dextrose 1 gm (/ Premix) 50 mls @ 100 mls/hr IV Q8H [facility]ANNA Last Admin: 04/02/18 08:33 Dose: 100 mls/hr Ibuprofen (Motrin) 800 mg PO Q6H PRN PRN Reason: Pain (mild 1-3) Last Admin: 04/01/18 16:28 Dose: 800 mg Ondansetron HCl (Zofran) 4 mg IVPUSH Q6H PRN PRN Reason: Nausea/Vomiting Last Admin: 04/01/18 05:05 Dose: 4 mg Oxycodone/Acetaminophen (Percocet 325-5 Mg) 1 tab PO Q4H PRN PRN Reason: Pain (moderate 4-6) Last Admin: 04/02/18 12:25 Dose: 1 tab Oxycodone/Acetaminophen (Percocet 325-5 Mg) 2 tab PO Q4H PRN PRN Reason: Pain (moderate 4-6) Last Admin: 04/02/18 08:31 Dose: 2 tab Promethazine HCl (Phenergan) 25 mg IM Q6H PRN PRN Reason: Nausea/Vomiting Discontinued Medications Bupivacaine HCl (Sensorcaine-Mpf 0.25%) Confirm Administered Dose 20 ml .ROUTE .STK-MED ONE Stop: 03/31/18 09:25 Cefazolin Sodium (Ancef) Confirm Administered Dose 1 gm .ROUTE .STK-MED ONE Stop: 03/31/18 13:49 Dexamethasone (Dexamethasone) Confirm Administered Dose 20 mg .ROUTE .STK-MED ONE Stop: 03/31/18 08:49 Ephedrine Sulfate (Ephedrine Sulfate) Confirm Administered Dose 50 mg .ROUTE .STK-MED ONE Stop: 03/31/18 11:41 Fentanyl (Sublimaze) Confirm Administered Dose 250 mcg .ROUTE .STK-MED ONE Stop: 03/31/18 08:36 Fentanyl (Sublimaze) 50 mcg IVPUSH Q5M PRN PRN Reason: Pain (severe 7-10) Stop: 03/31/18 13:00 Fluorescein Sodium (Ak-Fluor) Confirm Administered Dose 5 ml .ROUTE .STK-MED ONE Stop: 03/31/18 11:48 Furosemide (Lasix) Confirm Administered Dose 40 mg .ROUTE .STK-MED ONE Stop: 03/31/18 11:48 Furosemide (Lasix) Confirm Administered Dose 40 mg .ROUTE .STK-MED ONE Stop: 03/31/18 16:37 Glycopyrrolate (Robinul) Confirm Administered Dose 0.2 mg .ROUTE .STK-MED ONE Stop: 03/31/18 09:43 Hydromorphone HCl (Dilaudid) Confirm Administered Dose 2 mg .ROUTE .STK-MED ONE Stop: 03/31/18 12:59 Cefazolin Sodium/Dextrose 1 gm (/ Premix) 50 mls @ 100 mls/hr IV ONETIME ONE Stop: 03/31/18 09:29 Last Admin: 03/31/18 20:04 Dose: Not Given Lactated Ringer's (Ringers, Lactated) 1,000 mls @ 125 mls/hr IV ASDIRECTED [facility] Last Admin: 03/31/18 08:28 Dose: 125 mls/hr Lidocaine HCl (Xylocaine-Mpf 1%) Confirm Administered Dose 5 mls @ as directed .ROUTE .STK-MED ONE Stop: 03/31/18 08:42 Cefazolin Sodium/Dextrose (Ancef) Confirm Administered Dose 50 mls @ as directed .ROUTE .STK-MED ONE Stop: 03/31/18 09:26 Sodium Chloride (Normal Saline) Confirm Administered Dose 20 mls @ as directed .ROUTE .STK-MED ONE Stop: 03/31/18 13:00 Cefazolin Sodium/Dextrose 1 gm (/ Premix) 50 mls @ 100 mls/hr IV Q6H [facility] Stop: 04/01/18 02:29 Last Admin: 04/01/18 01:10 Dose: 100 mls/hr Lactated Ringer's (Ringers, Lactated) 1,000 mls @ 125 mls/hr IV ASDIRECTED [facility] Last Admin: 04/01/18 05:04 Dose: 125 mls/hr Iopamidol (Isovue-200 (41%)) Confirm Administered Dose 50 ml .ROUTE .STK-MED ONE Stop: 03/31/18 12:48 Ketorolac Tromethamine (Toradol) 30 mg IVPUSH Q6H [facility] Stop: 04/01/18 12:01 Last Admin: 04/01/18 12:23 Dose: 30 mg Ketorolac Tromethamine (Toradol) Confirm Administered Dose 30 mg .ROUTE .STK- MED ONE Stop: 03/31/18 18:19 Last Admin: 03/31/18 19:58 Dose: Not Given Methylene Blue (Provayblue) Confirm Administered Dose 50 mg .ROUTE .STK-MED ONE Stop: 03/31/18 09:25 Midazolam HCl (Versed 1 Mg/Ml) Confirm Administered Dose 2 mg .ROUTE .STK-MED ONE Stop: 03/31/18 08:36 Morphine Sulfate (Morphine) 4 mg IVPUSH Q2H PRN PRN Reason: Pain (severe 7-10) Morphine Sulfate (Morphine) 2 mg IVPUSH ONETIME ONE Stop: 04/01/18 16:59 Last Admin: 04/01/18 17:56 Dose: 2 mg Neostigmine Methylsulfate (Neostigmine) Confirm Administered Dose 5 mg .ROUTE .STK-MED ONE Stop: 03/31/18 09:43 Ondansetron HCl (Zofran) Confirm Administered Dose 4 mg .ROUTE .STK-MED ONE Stop: 03/31/18 08:49 Phenylephrine HCl (Phenylephrine In Ns 100 Mcg/Ml) Confirm Administered Dose 1 mg .ROUTE .STK-MED ONE Stop: 03/31/18 14:15 Propofol (Diprivan 20 Ml) Confirm Administered Dose 200 mg .ROUTE .STK-MED ONE Stop: 03/31/18 08:36 Rocuronium [place] (Zemuron) Confirm Administered Dose 100 mg .ROUTE .STK-MED ONE Stop: 03/31/18 08:48 Sodium Chloride (Saline Flush) 10 ml FLUSH ASDIRECTED PRN PRN Reason: Keep Vein Open Sodium Chloride (Saline Flush) 2.5 ml FLUSH ASDIRECTED PRN PRN Reason: Keep Vein Open Succinylcholine Chloride (Quelicin) Confirm Administered Dose 200 mg .ROUTE .STK -MED ONE Stop: 03/31/18 08:48 - Exam Wound/Incisions: Healing Well, No Drainage General: Alert, Oriented Lungs: Clear to Auscultation, Normal Respiratory Effort Cardiovascular: Regular Rate, Regular Rhythm GI/Abdominal Exam: Normal Bowel Sounds, Soft, Non-Tender Extremities: Non-Tender Skin: Warm Psy/Mental Status: Alert, Normal Affect, Normal Mood - Problem List & Annotations (1) S/P laparoscopic assisted vaginal hysterectomy (LAVH) SNOMED Code(s): 924686034, 78737492, 659567592 Code(s): Z90.710 - ACQUIRED ABSENCE OF BOTH CERVIX AND UTERUS Status: Acute Current Visit: Yes (2) Status post bilateral salpingectomy SNOMED Code(s): 637005710, 051771092 Code(s): Z90.79 - ACQUIRED ABSENCE OF OTHER GENITAL ORGAN(S) Status: Acute Current Visit: Yes (3) S/P ureteral reimplantation SNOMED Code(s): 329909167, 616453025, 108273235 Code(s): Z98.890 - OTHER SPECIFIED POSTPROCEDURAL STATES Status: Acute Current Visit: Yes - Problem List Review Problem List Initiated/Reviewed/Updated: Yes - My Orders Last 24 Hours: Active Orders 24 hr Category Date Time Status Ibuprofen [Motrin] Med 04/01/18 18:01 Active 800 mg PO Q6H PRN ceFAZolin [Ancef] 1 gm Med 04/01/18 17:15 Active Premix Bag 1 bag IV Q8H Medication Orders Cefazolin Sodium/Dextrose 1 gm (/ Premix) 50 mls @ 100 mls/hr IV Q8H [facility]AN[facility] Last Admin: 04/02/18 08:33 Dose: 100 mls/hr Infusion: 04/02/18 00:52 Dose: 100 mls/hr Admin: 04/02/18 00:22 Dose: 100 mls/hr Infusion: 04/01/18 18:23 Dose: 100 mls/hr Admin: 04/01/18 17:53 Dose: 100 mls/hr Ibuprofen (Motrin) 800 mg PO Q6H PRN PRN Reason: Pain (mild 1-3) Last Admin: 04/01/18 16:28 Dose: 800 mg Ondansetron HCl (Zofran) 4 mg IVPUSH Q6H PRN PRN Reason: Nausea/Vomiting Last Admin: 04/01/18 05:05 Dose: 4 mg Oxycodone/Acetaminophen (Percocet 325-5 Mg) 1 tab PO Q4H PRN PRN Reason: Pain (moderate 4-6) Last Admin: 04/02/18 12:25 Dose: 1 tab Admin: 04/01/18 20:07 Dose: 1 tab Oxycodone/Acetaminophen (Percocet 325-5 Mg) 2 tab PO Q4H PRN PRN Reason: Pain (moderate 4-6) Last Admin: 04/02/18 08:31 Dose: 2 tab Admin: 04/02/18 04:10 Dose: 2 tab Admin: 04/01/18 06:50 Dose: 2 tab Promethazine HCl (Phenergan) 25 mg IM Q6H PRN PRN Reason: Nausea/Vomiting - Assessment Assessment (Free Text/Narrative):: POD #1 s/p LAVH with bilateral salpingectomy and repair of right ureter Patient stable - Plan Plan (Free Text/Narrative):: Continue current care Aim for discharge tomorrow if agreeable by Dr Naidu
[2018-04-02] MEDS: Ibuprofen 800 MG Tab PO PRN (15:57)
[2018-04-03] MEDS: ceFAZolin 1 GM in Premix Bag 1 BAG IV SCH ×2 (00:24→08:16)
[2018-04-03] MEDS: Acetaminophen/oxyCODONE 325-5 MG Tab PO PRN ×3 (00:28→09:22)
[2018-04-03] MEDS: Ibuprofen 800 MG Tab PO PRN (08:13)
--- NOTE | 2018-04-03 09:01 | PCM.SURGPN ---
- General Info POD#: 2 Functional Status: Reports: Pain Controlled, Tolerating Diet, Ambulating - Review of Systems General: Denies: Fever HEENT: Denies: Headaches Pulmonary: Denies: Shortness of Breath, Pleuritic Chest Pain Cardiovascular: Denies: Chest Pain, Palpitations, Dyspnea on Exertion Gastrointestinal: Denies: Abdominal Pain, Nausea, Vomiting - Patient Data Vitals - Most Recent: Last Vital Signs Temp 36.0 C 04/03/18 08:00 Pulse 71 04/03/18 08:00 Resp 12 04/03/18 08:00 BP 104/59 L 04/03/18 08:00 Pulse Ox 98 04/03/18 08:00 Weight - Most Recent: 131 lb 3.2 oz I&O - Last 24 Hours: Intake & Output 04/02/18 04/03/18 04/03/18 22:59 06:59 14:59 Intake Total 1200 350 Output Total 750 1150 Balance 450 -800 Med Orders - Current: Current Medications Cefazolin Sodium/Dextrose 1 gm (/ Premix) 50 mls @ 100 mls/hr IV Q8H [facility] Last Admin: 04/03/18 08:16 Dose: 100 mls/hr Ibuprofen (Motrin) 800 mg PO Q6H PRN PRN Reason: Pain (mild 1-3) Last Admin: 04/03/18 08:13 Dose: 800 mg Ondansetron HCl (Zofran) 4 mg IVPUSH Q6H PRN PRN Reason: Nausea/Vomiting Last Admin: 04/01/18 05:05 Dose: 4 mg Oxycodone/Acetaminophen (Percocet 325-5 Mg) 1 tab PO Q4H PRN PRN Reason: Pain (moderate 4-6) Last Admin: 04/03/18 05:08 Dose: 1 tab Oxycodone/Acetaminophen (Percocet 325-5 Mg) 2 tab PO Q4H PRN PRN Reason: Pain (moderate 4-6) Last Admin: 04/02/18 08:31 Dose: 2 tab Promethazine HCl (Phenergan) 25 mg IM Q6H PRN PRN Reason: Nausea/Vomiting Discontinued Medications Bupivacaine HCl (Sensorcaine-Mpf 0.25%) Confirm Administered Dose 20 ml .ROUTE .STK-MED ONE Stop: 03/31/18 09:25 Cefazolin Sodium (Ancef) Confirm Administered Dose 1 gm .ROUTE .STK-MED ONE Stop: 03/31/18 13:49 Dexamethasone (Dexamethasone) Confirm Administered Dose 20 mg .ROUTE .STK-MED ONE Stop: 03/31/18 08:49 Ephedrine Sulfate (Ephedrine Sulfate) Confirm Administered Dose 50 mg .ROUTE .STK-MED ONE Stop: 03/31/18 11:41 Fentanyl (Sublimaze) Confirm Administered Dose 250 mcg .ROUTE .STK-MED ONE Stop: 03/31/18 08:36 Fentanyl (Sublimaze) 50 mcg IVPUSH Q5M PRN PRN Reason: Pain (severe 7-10) Stop: 03/31/18 13:00 Fluorescein Sodium (Ak-Fluor) Confirm Administered Dose 5 ml .ROUTE .STK-MED ONE Stop: 03/31/18 11:48 Furosemide (Lasix) Confirm Administered Dose 40 mg .ROUTE .STK-MED ONE Stop: 03/31/18 11:48 Furosemide (Lasix) Confirm Administered Dose 40 mg .ROUTE .STK-MED ONE Stop: 03/31/18 16:37 Glycopyrrolate (Robinul) Confirm Administered Dose 0.2 mg .ROUTE .STK-MED ONE Stop: 03/31/18 09:43 Hydromorphone HCl (Dilaudid) Confirm Administered Dose 2 mg .ROUTE .STK-MED ONE Stop: 03/31/18 12:59 Cefazolin Sodium/Dextrose 1 gm (/ Premix) 50 mls @ 100 mls/hr IV ONETIME ONE Stop: 03/31/18 09:29 Last Admin: 03/31/18 20:04 Dose: Not Given Lactated Ringer's (Ringers, Lactated) 1,000 mls @ 125 mls/hr IV ASDIRECTED [facility] Last Admin: 03/31/18 08:28 Dose: 125 mls/hr Lidocaine HCl (Xylocaine-Mpf 1%) Confirm Administered Dose 5 mls @ as directed .ROUTE .STK-MED ONE Stop: 03/31/18 08:42 Cefazolin Sodium/Dextrose (Ancef) Confirm Administered Dose 50 mls @ as directed .ROUTE .STK-MED ONE Stop: 03/31/18 09:26 Sodium Chloride (Normal Saline) Confirm Administered Dose 20 mls @ as directed .ROUTE .STK-MED ONE Stop: 03/31/18 13:00 Cefazolin Sodium/Dextrose 1 gm (/ Premix) 50 mls @ 100 mls/hr IV Q6H [facility] Stop: 04/01/18 02:29 Last Admin: 04/01/18 01:10 Dose: 100 mls/hr Lactated Ringer's (Ringers, Lactated) 1,000 mls @ 125 mls/hr IV ASDIRECTED [facility] Last Admin: 04/01/18 05:04 Dose: 125 mls/hr Iopamidol (Isovue-200 (41%)) Confirm Administered Dose 50 ml .ROUTE .STK-MED ONE Stop: 03/31/18 12:48 Ketorolac Tromethamine (Toradol) 30 mg IVPUSH Q6H [facility] Stop: 04/01/18 12:01 Last Admin: 04/01/18 12:23 Dose: 30 mg Ketorolac Tromethamine (Toradol) Confirm Administered Dose 30 mg .ROUTE .STK- MED ONE Stop: 03/31/18 18:19 Last Admin: 03/31/18 19:58 Dose: Not Given Methylene Blue (Provayblue) Confirm Administered Dose 50 mg .ROUTE .STK-MED ONE Stop: 03/31/18 09:25 Midazolam HCl (Versed 1 Mg/Ml) Confirm Administered Dose 2 mg .ROUTE .STK-MED ONE Stop: 03/31/18 08:36 Morphine Sulfate (Morphine) 4 mg IVPUSH Q2H PRN PRN Reason: Pain (severe 7-10) Morphine Sulfate (Morphine) 2 mg IVPUSH ONETIME ONE Stop: 04/01/18 16:59 Last Admin: 04/01/18 17:56 Dose: 2 mg Neostigmine Methylsulfate (Neostigmine) Confirm Administered Dose 5 mg .ROUTE .STK-MED ONE Stop: 03/31/18 09:43 Ondansetron HCl (Zofran) Confirm Administered Dose 4 mg .ROUTE .STK-MED ONE Stop: 03/31/18 08:49 Phenylephrine HCl (Phenylephrine In Ns 100 Mcg/Ml) Confirm Administered Dose 1 mg .ROUTE .STK-MED ONE Stop: 03/31/18 14:15 Propofol (Diprivan 20 Ml) Confirm Administered Dose 200 mg .ROUTE .STK-MED ONE Stop: 03/31/18 08:36 Rocuronium [place] (Zemuron) Confirm Administered Dose 100 mg .ROUTE .STK-MED ONE Stop: 03/31/18 08:48 Sodium Chloride (Saline Flush) 10 ml FLUSH ASDIRECTED PRN PRN Reason: Keep Vein Open Sodium Chloride (Saline Flush) 2.5 ml FLUSH ASDIRECTED PRN PRN Reason: Keep Vein Open Succinylcholine Chloride (Quelicin) Confirm Administered Dose 200 mg .ROUTE .STK -MED ONE Stop: 03/31/18 08:48 - Exam Wound/Incisions: Healing Well General: Alert, Oriented Lungs: Clear to Auscultation, Normal Respiratory Effort Cardiovascular: Regular Rate, Regular Rhythm GI/Abdominal Exam: Soft Extremities: Normal Inspection Skin: Warm Psy/Mental Status: Alert, Normal Affect, Normal Mood - Problem List & Annotations (1) S/P laparoscopic assisted vaginal hysterectomy (LAVH) SNOMED Code(s): 553301000, 93341016, 560326107 Code(s): Z90.710 - ACQUIRED ABSENCE OF BOTH CERVIX AND UTERUS Status: Acute Current Visit: Yes (2) Status post bilateral salpingectomy SNOMED Code(s): 285311960, 642501690 Code(s): Z90.79 - ACQUIRED ABSENCE OF OTHER GENITAL ORGAN(S) Status: Acute Current Visit: Yes (3) S/P ureteral reimplantation SNOMED Code(s): 508951618, 136532736, 210082984 Code(s): Z98.890 - OTHER SPECIFIED POSTPROCEDURAL STATES Status: Acute Current Visit: Yes - Problem List Review Problem List Initiated/Reviewed/Updated: Yes - My Orders Last 24 Hours: Medication Orders Cefazolin Sodium/Dextrose 1 gm (/ Premix) 50 mls @ 100 mls/hr IV Q8H [facility] Last Admin: 04/03/18 08:16 Dose: 100 mls/hr Infusion: 04/03/18 00:54 Dose: 100 mls/hr Admin: 04/03/18 00:24 Dose: 100 mls/hr Infusion: 04/02/18 17:46 Dose: 100 mls/hr Admin: 04/02/18 17:16 Dose: 100 mls/hr Infusion: 04/02/18 09:03 Dose: 100 mls/hr Admin: 04/02/18 08:33 Dose: 100 mls/hr Infusion: 04/02/18 00:52 Dose: 100 mls/hr Admin: 04/02/18 00:22 Dose: 100 mls/hr Infusion: 04/01/18 18:23 Dose: 100 mls/hr Admin: 04/01/18 17:53 Dose: 100 mls/hr Ibuprofen (Motrin) 800 mg PO Q6H PRN PRN Reason: Pain (mild 1-3) Last Admin: 04/03/18 08:13 Dose: 800 mg Admin: 04/02/18 15:57 Dose: 800 mg Admin: 04/01/18 16:28 Dose: 800 mg Ondansetron HCl (Zofran) 4 mg IVPUSH Q6H PRN PRN Reason: Nausea/Vomiting Last Admin: 04/01/18 05:05 Dose: 4 mg Oxycodone/Acetaminophen (Percocet 325-5 Mg) 1 tab PO Q4H PRN PRN Reason: Pain (moderate 4-6) Last Admin: 04/03/18 05:08 Dose: 1 tab Admin: 04/03/18 00:28 Dose: 1 tab Admin: 04/02/18 19:13 Dose: 1 tab Admin: 04/02/18 12:25 Dose: 1 tab Admin: 04/01/18 20:07 Dose: 1 tab Oxycodone/Acetaminophen (Percocet 325-5 Mg) 2 tab PO Q4H PRN PRN Reason: Pain (moderate 4-6) Last Admin: 04/02/18 08:31 Dose: 2 tab Admin: 04/02/18 04:10 Dose: 2 tab Admin: 04/01/18 06:50 Dose: 2 tab Promethazine HCl (Phenergan) 25 mg IM Q6H PRN PRN Reason: Nausea/Vomiting - Assessment Assessment (Free Text/Narrative):: POD#2, s/p LAVH with bilateral salpingectomy complicated with right ureteric injury s/p repair by urologist Patient stable Ambulating well and has no concerns Discharge today pending review by Dr Naidu - Plan Plan (Free Text/Narrative):: Discharge instructions review Nothing in the vagina for 6 weeks Bleeding and infection precautions reviewed Lifting precautions reviewed Follow up with me in [facility] in 2 weeks- already scheduled. Pains meds already sent to her pharmacy- Percocet and Ibuprofen
--- NOTE | 2018-04-03 09:08 | PCM.DCSUM1 ---
Discharge Summary - Hospital Course Brief History: 37 yo s/p LAVH with bilateral salpingectomy for symptomatic fibriod. Surgery was complicated by right ureteric injury which was repaired by the Urologist, Dr Naidu. Patient has post op course has been uneventful. She would be discharged later today with pain meds and antibiotics. Patient has been instructed on how to remove her indwelling cather on 04/07. Follow up arranged with Gynecology in 2 and 6weeks and Urology in 6 weeks Diagnosis: Stroke: No - Discharge Data Discharge Date: 04/03/18 Discharge Disposition: Home, Self-Care 01 Condition: Good - Discharge Diagnosis/Problem(s) (1) S/P laparoscopic assisted vaginal hysterectomy (LAVH) SNOMED Code(s): 168789018, 31874481, 584724460 ICD Code: Z90.710 - ACQUIRED ABSENCE OF BOTH CERVIX AND UTERUS Status: Acute Current Visit: Yes (2) Status post bilateral salpingectomy SNOMED Code(s): 982050513, 765177576 ICD Code: Z90.79 - ACQUIRED ABSENCE OF OTHER GENITAL ORGAN(S) Status: Acute Current Visit: Yes (3) S/P ureteral reimplantation SNOMED Code(s): 649111637, 122323255, 163057184 ICD Code: Z98.890 - OTHER SPECIFIED POSTPROCEDURAL STATES Status: Acute Current Visit: Yes - Patient Summary/Data Operative Procedure(s) Performed: Laparoscopic assisted Vaginal hysterectomy with bilateral salpingectomy and Cystoscopy Complications: Right ureteric injury Consults: Dr Naidu Lds Hospital Course: Uncomplicated - Patient Instructions Diet: Regular Diet as Tolerated Driving: May Drive Today Showering/Bathing: May Shower, No Tub Bathing/Swimming Wound/Incision Care: Keep Operative Site/Wound Site Clean and Dry Notify Provider of: Fever, Increased Pain, Swelling and Redness, Nausea and/or Vomiting Other/Special Instructions: Nothing per vagina for 6 weeks. Call office if fever over 100.8 F, uncontrolled pain or bleeding more than a large pad per hour. - Discharge Plan *PRESCRIPTION DRUG MONITORING PROGRAM REVIEWED*: No *COPY OF PRESCRIPTION DRUG MONITORING REPORT IN PATIENT PERCY: No Home Medications: Home Meds Iron 1 tab PO DAILY 03/27/18 [History] Vitamin C With Zinc 1 tab PO DAILY 03/27/18 [History] Patient Handouts: Nitrofurantoin tablets or capsules, Laparoscopically Assisted Vaginal Hysterectomy, Care After, Indwelling Urinary Catheter Care, Adult, [id number] Referrals: Rhonda Ansari MD [Physician] - 04/15/18 9:30 am (6 week follow up appointment on 05/13/2018 at 0930) Kevin Naidu MD [Physician] - 05/12/18 2:30 pm () - General Info Date of Service: 04/03/18 Functional Status: Reports: Pain Controlled, Tolerating Diet, Ambulating - Review of Systems General: Reports: No Symptoms - Patient Data Vitals - Most Recent: Last Vital Signs Temp 36.0 C 04/03/18 08:00 Pulse 71 04/03/18 08:00 Resp 12 04/03/18 08:00 BP 104/59 L 04/03/18 08:00 Pulse Ox 98 04/03/18 08:00 Weight - Most Recent: 131 lb 3.2 oz I&O - Last 24 hours: Intake & Output 04/02/18 04/03/18 04/03/18 22:59 06:59 14:59 Intake Total 1200 350 Output Total 750 1150 Balance 450 -800 Med Orders - Current: Current Medications Cefazolin Sodium/Dextrose 1 gm (/ Premix) 50 mls @ 100 mls/hr IV Q8H [facility] Last Admin: 04/03/18 08:16 Dose: 100 mls/hr Ibuprofen (Motrin) 800 mg PO Q6H PRN PRN Reason: Pain (mild 1-3) Last Admin: 04/03/18 08:13 Dose: 800 mg Ondansetron HCl (Zofran) 4 mg IVPUSH Q6H PRN PRN Reason: Nausea/Vomiting Last Admin: 04/01/18 05:05 Dose: 4 mg Oxycodone/Acetaminophen (Percocet 325-5 Mg) 1 tab PO Q4H PRN PRN Reason: Pain (moderate 4-6) Last Admin: 04/03/18 05:08 Dose: 1 tab Oxycodone/Acetaminophen (Percocet 325-5 Mg) 2 tab PO Q4H PRN PRN Reason: Pain (moderate 4-6) Last Admin: 04/02/18 08:31 Dose: 2 tab Promethazine HCl (Phenergan) 25 mg IM Q6H PRN PRN Reason: Nausea/Vomiting Discontinued Medications Bupivacaine HCl (Sensorcaine-Mpf 0.25%) Confirm Administered Dose 20 ml .ROUTE .STK-MED ONE Stop: 03/31/18 09:25 Cefazolin Sodium (Ancef) Confirm Administered Dose 1 gm .ROUTE .STK-MED ONE Stop: 03/31/18 13:49 Dexamethasone (Dexamethasone) Confirm Administered Dose 20 mg .ROUTE .STK-MED ONE Stop: 03/31/18 08:49 Ephedrine Sulfate (Ephedrine Sulfate) Confirm Administered Dose 50 mg .ROUTE .STK-MED ONE Stop: 03/31/18 11:41 Fentanyl (Sublimaze) Confirm Administered Dose 250 mcg .ROUTE .STK-MED ONE Stop: 03/31/18 08:36 Fentanyl (Sublimaze) 50 mcg IVPUSH Q5M PRN PRN Reason: Pain (severe 7-10) Stop: 03/31/18 13:00 Fluorescein Sodium (Ak-Fluor) Confirm Administered Dose 5 ml .ROUTE .STK-MED ONE Stop: 03/31/18 11:48 Furosemide (Lasix) Confirm Administered Dose 40 mg .ROUTE .STK-MED ONE Stop: 03/31/18 11:48 Furosemide (Lasix) Confirm Administered Dose 40 mg .ROUTE .STK-MED ONE Stop: 03/31/18 16:37 Glycopyrrolate (Robinul) Confirm Administered Dose 0.2 mg .ROUTE .STK-MED ONE Stop: 03/31/18 09:43 Hydromorphone HCl (Dilaudid) Confirm Administered Dose 2 mg .ROUTE .STK-MED ONE Stop: 03/31/18 12:59 Cefazolin Sodium/Dextrose 1 gm (/ Premix) 50 mls @ 100 mls/hr IV ONETIME ONE Stop: 03/31/18 09:29 Last Admin: 03/31/18 20:04 Dose: Not Given Lactated Ringer's (Ringers, Lactated) 1,000 mls @ 125 mls/hr IV ASDIRECTED [facility] Last Admin: 03/31/18 08:28 Dose: 125 mls/hr Lidocaine HCl (Xylocaine-Mpf 1%) Confirm Administered Dose 5 mls @ as directed .ROUTE .STK-MED ONE Stop: 03/31/18 08:42 Cefazolin Sodium/Dextrose (Ancef) Confirm Administered Dose 50 mls @ as directed .ROUTE .STK-MED ONE Stop: 03/31/18 09:26 Sodium Chloride (Normal Saline) Confirm Administered Dose 20 mls @ as directed .ROUTE .STK-MED ONE Stop: 03/31/18 13:00 Cefazolin Sodium/Dextrose 1 gm (/ Premix) 50 mls @ 100 mls/hr IV Q6H [facility] Stop: 04/01/18 02:29 Last Admin: 04/01/18 01:10 Dose: 100 mls/hr Lactated Ringer's (Ringers, Lactated) 1,000 mls @ 125 mls/hr IV ASDIRECTED [facility] Last Admin: 04/01/18 05:04 Dose: 125 mls/hr Iopamidol (Isovue-200 (41%)) Confirm Administered Dose 50 ml .ROUTE .STK-MED ONE Stop: 03/31/18 12:48 Ketorolac Tromethamine (Toradol) 30 mg IVPUSH Q6H [facility] Stop: 04/01/18 12:01 Last Admin: 04/01/18 12:23 Dose: 30 mg Ketorolac Tromethamine (Toradol) Confirm Administered Dose 30 mg .ROUTE .STK- MED ONE Stop: 03/31/18 18:19 Last Admin: 03/31/18 19:58 Dose: Not Given Methylene Blue (Provayblue) Confirm Administered Dose 50 mg .ROUTE .STK-MED ONE Stop: 03/31/18 09:25 Midazolam HCl (Versed 1 Mg/Ml) Confirm Administered Dose 2 mg .ROUTE .STK-MED ONE Stop: 03/31/18 08:36 Morphine Sulfate (Morphine) 4 mg IVPUSH Q2H PRN PRN Reason: Pain (severe 7-10) Morphine Sulfate (Morphine) 2 mg IVPUSH ONETIME ONE Stop: 04/01/18 16:59 Last Admin: 04/01/18 17:56 Dose: 2 mg Neostigmine Methylsulfate (Neostigmine) Confirm Administered Dose 5 mg .ROUTE .STK-MED ONE Stop: 03/31/18 09:43 Ondansetron HCl (Zofran) Confirm Administered Dose 4 mg .ROUTE .STK-MED ONE Stop: 03/31/18 08:49 Phenylephrine HCl (Phenylephrine In Ns 100 Mcg/Ml) Confirm Administered Dose 1 mg .ROUTE .STK-MED ONE Stop: 03/31/18 14:15 Propofol (Diprivan 20 Ml) Confirm Administered Dose 200 mg .ROUTE .STK-MED ONE Stop: 03/31/18 08:36 Rocuronium [place] (Zemuron) Confirm Administered Dose 100 mg .ROUTE .STK-MED ONE Stop: 03/31/18 08:48 Sodium Chloride (Saline Flush) 10 ml FLUSH ASDIRECTED PRN PRN Reason: Keep Vein Open Sodium Chloride (Saline Flush) 2.5 ml FLUSH ASDIRECTED PRN PRN Reason: Keep Vein Open Succinylcholine Chloride (Quelicin) Confirm Administered Dose 200 mg .ROUTE .STK -MED ONE Stop: 03/31/18 08:48 - Exam General: Reports: Alert, Oriented Neck: Reports: Supple Lungs: Reports: Clear to Auscultation, Normal Respiratory Effort Cardiovascular: Reports: Regular Rate, Regular Rhythm GI/Abdominal Exam: Normal Bowel Sounds, Soft, Non-Tender Extremities: No Pedal Edema Skin: Reports: Warm, Dry, Intact Wound/Incisions: Reports: Healing Well Psy/Mental Status: Reports: Alert, Normal Affect, Normal Mood *Q Meaningful Use (DIS) - VTE *Q VTE Criteria *Q: Not indicated
[2018-04-03 11:47] VITALS: BP 120/57
== END 2018-04-03 13:30 | disposition home or self-care (01) ==
LOC: MW.SDS 08:02 → MW.MS 17:55
PROVIDERS: ADMIT Obstetrics & Gynecology; ATTEND Obstetrics & Gynecology
DX: D25.0 Submucous leiomyoma of uterus (principal); N87.9 Dysplasia of cervix uteri, unspecified; N83.8 Other noninflammatory disorders of ovary, fallopian tube and broad ligament; D50.9 Iron deficiency anemia, unspecified; N99.71 Accidental puncture and laceration of a genitourinary system organ or structure during a genitourinary system procedure; Y69 Unspecified misadventure during surgical and medical care; Y92.234 Operating room of hospital as the place of occurrence of the external cause
CPT/HCPCS: 36415; 50900; 58552; 76000; 80048; 84703; 85025; 85027; 86850; 86900; 86901; 88304; 88309; A9270; C1769; J0330; J0690; J1100; J1170; J1885; J1940; J2250; J2270; J2370; J2405; J2704; J3010; J3490; J7120; Q9966; 00944

== ENCOUNTER 2019-02-18 16:51 | Emergency (ER) | payer MEDICAID ==
[2019-02-18 17:09] VITALS: BP 105/61
--- NOTE | 2019-02-18 17:22 | EDM.PDOC ---
ED HPI GENERAL MEDICAL PROBLEM - General Chief Complaint: Skin Complaint Stated Complaint: RASH Time Seen by Provider: 02/18/19 17:01 Source of Information: Reports: Patient History Limitations: Reports: No Limitations - History of Present Illness INITIAL COMMENTS - FREE TEXT/NARRATIVE: History of present illness: []Patient has 3 days of a rash that started on her back spread to her trunk and face and face she has a couple spots on her arm now. It appears like chickenpox , however, patient states she is vaccinated for chickenpox and she is not itchy. The lesions are sensitive when her close touch them. Review of systems: As per history of present illness and below otherwise all systems reviewed and negative. Past medical history: As per history of present illness and as reviewed below otherwise noncontributory. Surgical history: As per history of present illness and as reviewed below otherwise noncontributory. Social history: No reported history of drug or alcohol abuse. Family history: As per history of present illness and as reviewed below otherwise noncontributory. Physical exam: General: Well developed, well nourished in NAD HEENT: Atraumatic, normocephalic, pupils reactive, negative for conjunctival pallor or scleral icterus, mucous membranes moist, throat clear, neck supple, nontender, trachea midline. Lungs: Clear to auscultation, breath sounds equal bilaterally, chest nontender. Heart: S1S2, regular, negative for clicks, rubs, or JVD. Abdomen: NABS, Soft, nondistended, nontender. Negative for masses or hepatosplenomegaly. Negative for costovertebral tenderness. Pelvis: Stable nontender. Genitourinary: Deferred. Rectal: Deferred. Extremities: Atraumatic, negative for cords or calf pain. Neurovascular unremarkable. Neuro: Awake, alert, oriented. Cranial nerves II through XII unremarkable. Cerebellum unremarkable. Motor and sensory unremarkable throughout. Exam nonfocal. Skin: Multiple raised erythematous area size and stage lesions some are pustular lesions Diagnostics: None Therapeutics: None ED Course: Stable Impression: Rash Prescriptions: Medrol Dosepak Plan: Take meds as directed, follow up with your primary care physician, return to ER if symptoms worsen or change. Definitive disposition and diagnosis as appropriate pending reevaluation and review of above. - Related Data Allergies Allergy/AdvReac Type Severity Reaction Status Date / Time No Known Allergies Allergy Verified 02/18/19 17:06 Home Meds: Home Meds Nitrofurantoin Macrocrystal [Nitrofurantoin] 25 mg PO DAILY 02/18/19 [History] methylPREDNISolone [Medrol] 4 mg PO ASDIRECTED #1 dosepk 02/18/19 [Rx] Past Medical History - Past Health History Medical/Surgical History: Denies Medical/Surgical History HEENT History: Reports: Other (See Below) Other HEENT History: wears glasses Cardiovascular History: Reports: None Respiratory History: Reports: None Gastrointestinal History: Reports: None Genitourinary History: Reports: Pyelonephritis INTEGRATED SPECIALIST History: Reports: Fibroids, Musculoskeletal History: Reports: None Neurological History: Reports: None Psychiatric History: Reports: None Endocrine/Metabolic History: Reports: None Hematologic History: Reports: Blood Transfusion(s) Immunologic History: Reports: None Oncologic (Cancer) History: Reports: None Dermatologic History: Reports: None - Infectious Disease History Infectious Disease History: Reports: None - Past Surgical History Head Surgeries/Procedures: Reports: None Female Surgical History: Reports: Breast Biopsy, Hysterectomy, Other (See Below) Other Female Surgeries/Procedures: 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 Social & Family History - Family History Family Medical History: Noncontributory - Tobacco Use Smoking Status *Q: Never Smoker Second Hand Smoke Exposure: No - Caffeine Use Caffeine Use: Reports: Coffee Caffeine Use Comment: 2cup/day - Recreational Drug Use Recreational Drug Use: No ED ROS GENERAL - Review of Systems Review Of Systems: See Below ED EXAM, SKIN/RASH Exam: See Below Course - Vital Signs Last Recorded V/S: Last Vital Signs Temp 97.8 F 02/18/19 17:07 Pulse 65 02/18/19 17:07 Resp 16 02/18/19 17:07 BP 105/61 02/18/19 17:07 Pulse Ox 98 02/18/19 17:07 Departure - Departure Time of Disposition: 17:23 Disposition: Home, Self-Care 01 Condition: Good Clinical Impression: Pustular rash - Discharge Information *PRESCRIPTION DRUG MONITORING PROGRAM REVIEWED*: No *COPY OF PRESCRIPTION DRUG MONITORING REPORT IN PATIENT PERCY: No Referrals: PCP,Unknown [Primary Care Provider] - Additional Instructions: The following information is given to patients seen in the emergency department who are being discharged to home. This information is to outline your options for follow-up care. We provide all patients seen in our emergency department with a follow-up referral. The need for follow-up, as well as the timing and circumstances, are variable depending upon the specifics of your emergency department visit. If you don't have a primary care physician on staff, we will provide you with a referral. We always advise you to contact your personal physician following an emergency department visit to inform them of the circumstance of the visit and for follow-up with them and/or the need for any referrals to a consulting specialist. The emergency department will also refer you to a specialist when appropriate. This referral assures that you have the opportunity for follow-up care with a specialist. All of these measure are taken in an effort to provide you with optimal care, which includes your follow-up. Under all circumstances we always encourage you to contact your private physician who remains a resource for coordinating your care. When calling for follow-up care, please make the office aware that this follow-up is from your recent emergency room visit. If for any reason you are refused follow-up, please contact the Emergency Department at and asked to speak to the emergency department charge nurse. Take meds as directed, follow up with your primary care physician, return to ER if symptoms worsen or change. Primary Care [address] [place] [id number]
== END 2019-02-18 17:35 | disposition home or self-care (01) ==
LOC: MW.ED 16:51
DX: L08.0 Pyoderma (principal)
CPT/HCPCS: 99282

== ENCOUNTER 2020-05-23 13:33 | Emergency (ER) | payer MEDICAID ==
[2020-05-23] MEDS ORDERED: Ondansetron 4 MG Tab.DIS PO ONE (14:11)
--- NOTE | 2020-05-23 14:15 | EDM.PDOC ---
ED HPI GENERAL MEDICAL PROBLEM - General Chief Complaint: General Stated Complaint: DIZZINESS Time Seen by Provider: 05/23/20 13:52 Source of Information: Reports: Patient History Limitations: Reports: No Limitations - History of Present Illness INITIAL COMMENTS - FREE TEXT/NARRATIVE: HISTORY AND PHYSICAL: History of present illness: Patient is a 39-year-old female who presents to the ED today with concern of generalized body aches, headache, dizziness, and decreased appetite x4 to 5 days. Patient states that she was concerned because she does have a history of frequent urinary tract infections and wanted to be sure she was not missing a urinary tract infection. Patient states that she has not been exposed to COVID- 19 that she is aware of. Patient states that she has had a decrease in appetite as well as not been drinking as much fluids as she would normally but she has been able to eat and drink. Patient states she has a history of hysterectomy due to a fibroid but denies any other health history. Patient denies fever, chills, chest pain, shortness of breath, or cough. Denies neck stiff ness, change in vision, syncope, or near syncope. Denies vomiting, abdominal pain, diarrhea, constipation, or dysuria. Has not noted any blood in urine or stool. Review of systems: As per history of present illness and below otherwise all systems reviewed and negative. Past medical history: As per history of present illness and as reviewed below otherwise noncontributory. Surgical history: As per history of present illness and as reviewed below otherwise nonc ontributory. Social history: See social history for further information Family history: As per history of present illness and as reviewed below otherwise noncontributory. Physical exam: General: Patient is alert, oriented, and in no acute distress. Patient sitting comfortably on exam table. HEENT: Atraumatic, normocephalic, pupils equal and reactive bilaterally, negative for conjunctival pallor or scleral icterus, mucous membranes moist, TMs normal bilaterally, throat clear, neck supple, nontender, trachea midline. No drooling or trismus noted. No meningeal signs. No hot potato voice noted. Lungs: Clear to auscultation, breath sounds equal bilaterally, chest nontender. Heart: S1S2, regular rate and rhythm without overt murmur Abdomen: Soft, nondistended, nontender. Negative for masses or hepatosplenomegaly. Negative for costovertebral tenderness. Pelvis: Stable nontender. Genitourinary: Deferred. Rectal: Deferred. Skin: Intact, warm, dry. No lesions or rashes noted. Extremities: Atraumatic, negative for cords or calf pain. Neurovascular unremarkable. Neuro: Awake, alert, oriented. Cranial nerves II through XII unremarkable. Cerebellum unremarkable. Motor and sensory unremarkable throughout. Exam nonfocal. Notes: Signs and symptoms that would prompt return to the ED thoroughly discussed with patient. Discussed importance for follow-up with a primary care provider pending quarantine restrictions. Voices understanding and is agreeable to plan of care. Denies any further questions or concerns at this time. Diagnostics: COVID19, UA, CBC, CMP Therapeutics: Zofran Prescription: Zofran Impression: COVID-19 Infection Plan: 1. Your COVID-19 screening is positive. That means you do have the coronavirus and are considered contagious. Your vital signs and oxygen saturation are well enough that you were able to monitor your symptoms at home. Continue to monitor for trouble breathing, new confusion or inability to arouse, bluish lips or face or any of the other symptoms we discussed -if this occurs please return to the emergency room.Continue to monitor your health at home for worsening symptoms so that you can be taken care of and treated quickly if needed. 2. Please self quarantine until 10 days have passed since your symptoms began AND you are fever free (<100.4 degrees fahrenheit) for 24 hours without the use of fever-reducing medications AND symptoms are improving. You should restrict activities outside of your home, except for getting medical care. Do not go to work, school, or public areas. Avoid using public transportation, ride-sharing, or taxis. Inform any persons that you have been in contact with since you started becoming symptomatic that you have tested positive; they should be made aware and take the appropriate steps as needed. 3. Take the medications as we prescribed as discussed. You can take NyQuil during the evening to help get a restful night sleep. 4. You may alternate Tylenol and ibuprofen as needed for pain and fever management. 5. The [facility] department will be calling you and following up with you. The [place] COVID 19 Hotline phone number , They are open Saturday - Saturday 7am - 7pm. Follow up with your primary care provider for re-evaluation and re-testing after quarantine and discuss when you should be seen. 6. For more specific guidelines regarding isolation/quarantine please visit this website. https://www.health.[place].gov/sites/www/files/documents/Files/MARY/coronavirus/Factsh eet_for_People_With_COVID-19.pdf Definitive disposition and diagnosis as appropriate pending reevaluation and review of above. head, body Pain Score (Numeric/FACES): 8 - Related Data Allergies Allergy/AdvReac Type Severity Reaction Status Date / Time No Known Allergies Allergy Verified 05/23/20 14:00 Home Meds: Home Meds Ondansetron [Zofran ODT] 4 mg PO Q6H PRN #8 tab.dis 05/23/20 [Rx] Past Medical History - Past Health History Medical/Surgical History: Denies Medical/Surgical History HEENT History: Reports: Other (See Below) Other HEENT History: wears glasses Cardiovascular History: Reports: None Respiratory History: Reports: None Gastrointestinal History: Reports: None Genitourinary History: Reports: Pyelonephritis STRATEGY ASSOCIATE History: Reports: Fibroids, Musculoskeletal History: Reports: None Neurological History: Reports: None Psychiatric History: Reports: None Endocrine/Metabolic History: Reports: None Hematologic History: Reports: Blood Transfusion(s) Immunologic History: Reports: None Oncologic (Cancer) History: Reports: None Dermatologic History: Reports: None - Infectious Disease History Infectious Disease History: Reports: None - Past Surgical History Head Surgeries/Procedures: Reports: None Female Surgical History: Reports: Breast Biopsy, Hysterectomy, Other (See Below) Other Female Surgeries/Procedures: 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 ED EXAM, GENERAL - Physical Exam Exam: See Below (see dictation) Course - Vital Signs Last Recorded V/S: Last Vital Signs Temp 98.3 F 05/23/20 13:56 Pulse 78 05/23/20 13:56 Resp 16 11/16/20 13:56 BP 107/61 05/23/20 13:56 Pulse Ox 99 05/23/20 13:56 - Orders/Labs/Meds Orders: Active Orders 24 hr Category Date Time Status EKG Documentation Completion [RC] STAT Care 05/23/20 13:44 Active CORONAVIRUS COVID-19 PCR PHL Stat Lab 05/23/20 14:38 Received Labs: Laboratory Tests 05/23/20 05/23/20 05/23/20 Range/Units 14:25 14:25 14:35 WBC 3.20 L (4.0-11.0) K/uL RBC 4.81 (4.30-5.90) M/uL Hgb 14.2 (12.0-16.0) g/dL Hct 41.6 (36.0-46.0) % MCV 86.5 (80.0-98.0) fL MCH 29.5 (27.0-32.0) pg MCHC 34.1 (31.0-37.0) g/dL RDW Std Deviation 40.7 (28.0-62.0) fl RDW Coeff of Swapnil 13 (11.0-15.0) % Plt Count 186 (150-400) K/uL MPV 10.10 (7.40-12.00) fL Neut % (Auto) 61.2 (48.0-80.0) % Lymph % (Auto) 32.2 (16.0-40.0) % [place] % (Auto) 6.3 (0.0-15.0) % Eos % (Auto) 0.3 (0.0-7.0) % Baso % (Auto) 0.0 (0.0-1.5) % Neut # (Auto) 2.0 (1.4-5.7) K/uL Lymph # (Auto) 1.0 (0.6-2.4) K/uL [place] # (Auto) 0.2 (0.0-0.8) K/uL Eos # (Auto) 0.0 (0.0-0.7) K/uL Baso # (Auto) 0.0 (0.0-0.1) K/uL Nucleated RBC % 0.0 /100WBC Nucleated RBCs # 0 K/uL Sodium 140 (136-145) mmol/L Potassium 3.7 (3.5-5.1) mmol/L Chloride 103 (98-107) mmol/L Carbon Dioxide 29.6 (21.0-32.0) mmol/L BUN 8 (7.0-18.0) mg/dL Creatinine 0.6 (0.6-1.0) mg/dL Est Cr Clr Drug Dosing 115.52 mL/min Estimated GFR (MDRD) > 60.0 ml/min Glucose 88 (74-106) mg/dL Calcium 8.3 L (8.5-10.1) mg/dL Total Bilirubin 0.2 (0.2-1.0) mg/dL AST 37 (15-37) IU/L ALT 47 (14-63) IU/L Alkaline Phosphatase 92 (46-116) U/L Total Protein 7.9 (6.4-8.2) g/dL Albumin 3.6 (3.4-5.0) g/dL Globulin 4.3 H (2.6-4.0) g/dL Albumin/Globulin Ratio 0.8 L (0.9-1.6) Urine Color YELLOW Urine Appearance CLEAR Urine pH 6.0 (5.0-8.0) Ur Specific [place] 1.025 (1.001-1.035) Urine Protein NEGATIVE (NEGATIVE) mg/dL Urine Glucose (UA) NEGATIVE (NEGATIVE) mg/dL Urine Ketones NEGATIVE (NEGATIVE) mg/dL Urine Occult Blood NEGATIVE (NEGATIVE) Urine Nitrite NEGATIVE (NEGATIVE) Urine Bilirubin NEGATIVE (NEGATIVE) Urine Urobilinogen 0.2 (<2.0) EU/dL Ur Leukocyte Esterase NEGATIVE (NEGATIVE) Urine HCG, Qual (NEGATIVE) SARS CoV-2 RNA Rapid MILA (NEGATIVE) 05/23/20 05/23/20 Range/Units 14:35 14:38 WBC (4.0-11.0) K/uL RBC (4.30-5.90) M/uL Hgb (12.0-16.0) g/dL Hct (36.0-46.0) % MCV (80.0-98.0) fL MCH (27.0-32.0) pg MCHC (31.0-37.0) g/dL RDW Std Deviation (28.0-62.0) fl RDW Coeff of Swapnil (11.0-15.0) % Plt Count (150-400) K/uL MPV (7.40-12.00) fL Neut % (Auto) (48.0-80.0) % Lymph % (Auto) (16.0-40.0) % [place] % (Auto) (0.0-15.0) % Eos % (Auto) (0.0-7.0) % Baso % (Auto) (0.0-1.5) % Neut # (Auto) (1.4-5.7) K/uL Lymph # (Auto) (0.6-2.4) K/uL [place] # (Auto) (0.0-0.8) K/uL Eos # (Auto) (0.0-0.7) K/uL Baso # (Auto) (0.0-0.1) K/uL Nucleated RBC % /100WBC Nucleated RBCs # K/uL Sodium (136-145) mmol/L Potassium (3.5-5.1) mmol/L Chloride (98-107) mmol/L Carbon Dioxide (21.0-32.0) mmol/L BUN (7.0-18.0) mg/dL Creatinine (0.6-1.0) mg/dL Est Cr Clr Drug Dosing mL/min Estimated GFR (MDRD) ml/min Glucose (74-106) mg/dL Calcium (8.5-10.1) mg/dL Total Bilirubin (0.2-1.0) mg/dL AST (15-37) IU/L ALT (14-63) IU/L Alkaline Phosphatase (46-116) U/L Total Protein (6.4-8.2) g/dL Albumin (3.4-5.0) g/dL Globulin (2.6-4.0) g/dL Albumin/Globulin Ratio (0.9-1.6) Urine Color Urine Appearance Urine pH (5.0-8.0) Ur Specific [place] (1.001-1.035) Urine Protein (NEGATIVE) mg/dL Urine Glucose (UA) (NEGATIVE) mg/dL Urine Ketones (NEGATIVE) mg/dL Urine Occult Blood (NEGATIVE) Urine Nitrite (NEGATIVE) Urine Bilirubin (NEGATIVE) Urine Urobilinogen (<2.0) EU/dL Ur Leukocyte Esterase (NEGATIVE) Urine HCG, Qual NEGATIVE (NEGATIVE) SARS CoV-2 RNA Rapid MILA POSITIVE H (NEGATIVE) Meds: Medications Discontinued Medications Generic Name Dose Route Start Last Admin Trade Name Mitchell PRN Reason Stop Dose Admin Ondansetron HCl 4 mg 05/23/20 14:11 05/23/20 14:29 Zofran Odt PO 05/23/20 14:12 4 mg ONETIME ONE Administration Departure - Departure Time of Disposition: 15:08 Disposition: Home, Self-Care 01 Clinical Impression: COVID-19 virus infection - Discharge Information Prescriptions: Ondansetron [Zofran ODT] 4 mg PO Q6H PRN #8 tab.dis PRN Reason: Nausea/Vomiting Instructions: COVID-19 Frequently Asked Questions Referrals: Anthony Baez MD [Primary Care Provider] - Forms: ED Department Discharge Additional Instructions: The following information is given to patients seen in the emergency department who are being discharged to home. This information is to outline your options for follow-up care. We provide all patients seen in our emergency department with a follow-up referral. The need for follow-up, as well as the timing and circumstances, are variable depending upon the specifics of your emergency department visit. If you don't have a primary care physician on staff, we will provide you with a referral. We always advise you to contact your personal physician following an emergency department visit to inform them of the circumstance of the visit and for follow-up with them and/or the need for any referrals to a consulting specialist. The emergency department will also refer you to a specialist when appropriate. This referral assures that you have the opportunity for follow-up care with a specialist. All of these measure are taken in an effort to provide you with optimal care, which includes your follow-up. Under all circumstances we always encourage you to contact your private physician who remains a resource for coordinating your care. When calling for follow-up care, please make the office aware that this follow-up is from your recent emergency room visit. If for any reason you are refused follow-up, please contact the [facility] Emergency Department at and asked to speak to the emergency department charge nurse. [facility] [address] [place] [id number] [facility] [address] [place] [id number] 1. Your COVID-19 screening is positive. That means you do have the coronavirus and are considered contagious. Your vital signs and oxygen saturation are well enough that you were able to monitor your symptoms at home. Continue to monitor for trouble breathing, new confusion or inability to arouse, bluish lips or face or any of the other symptoms we discussed -if this occurs please return to the emergency room.Continue to monitor your health at home for worsening symptoms so that you can be taken care of and treated quickly if needed. 2. Please self quarantine until 10 days have passed since your symptoms began AND you are fever free (<100.4 degrees fahrenheit) for 24 hours without the use of fever-reducing medications AND symptoms are improving. You should restrict activities outside of your home, except for getting medical care. Do not go to work, school, or public areas. Avoid using public transportation, ride-sharing, or taxis. Inform any persons that you have been in contact with since you started becoming symptomatic that you have tested positive; they should be made aware and take the appropriate steps as needed. 3. Take the medications as we prescribed as discussed. You can take NyQuil during the evening to help get a restful night sleep. 4. You may alternate Tylenol and ibuprofen as needed for pain and fever management. 5. The [facility] department will be calling you and following up with you. The [place] COVID 19 Hotline phone number , They are open Saturday - Saturday 7am - 7pm. Follow up with your primary care provider for re-evaluation and re-testing after quarantine and discuss when you should be seen. 6. For more specific guidelines regarding isolation/quarantine please visit this website. https://www.health.[place].gov/sites/www/files/documents/Files/MARY/coronavirus/Factsh eet_for_People_With_COVID-19.pdf Sepsis Event Note (ED) - Evaluation Sepsis Screening Result: No Definite Risk - Focused Exam Vital Signs: Vital Signs Temp Pulse Resp BP Pulse Ox 05/23/20 13:56 98.3 F 78 16 107/61 99 - My Orders Last 24 Hours: My Active Orders 05/23/20 13:44 EKG Documentation Completion [RC] STAT 05/23/20 14:38 CORONAVIRUS COVID-19 PCR PHL Stat - Assessment/Plan Last 24 Hours: My Active Orders 05/23/20 13:44 EKG Documentation Completion [RC] STAT 05/23/20 14:38 CORONAVIRUS COVID-19 PCR PHL Stat
--- NOTE | 2020-05-23 14:32 | PCM.SN.2 ---
- Free Text/Narrative Note: 12-Lead ECG Interpretation Acquired: 2:24 PM Rhythm: Sinus rhythm Rate: 74 bpm [place]: Normal Intervals: Normal Ectopy: None RV Strain: No obvious RV strain pattern. ST Segments/T-Waves: No notable changes Acute Ischemic Changes: None apparent Interpretation: No STEMI
[2020-05-23 15:04] LABS: BLOOD UREA NITROGEN,BUN 8 mg/dL (7.0-18.0); CARBON DIOXIDE,CO2 29.6 mmol/L (21.0-32.0); CHLORIDE,CL 103 mmol/L (98-107); GLUCOSE RANDOM 88 mg/dL (74-106); POTASSIUM,K 3.7 mmol/L (3.5-5.1); SODIUM,NA 140 mmol/L (136-145)
[2020-05-23 15:19] VITALS: BP 96/59; PULSE 67
== END 2020-05-23 15:18 | disposition home or self-care (01) ==
LOC: MW.ED 13:33
DX: U07.1 COVID-19 (principal); Z90.710 Acquired absence of both cervix and uterus
CPT/HCPCS: 36415; 80053; 81003; 81025; 85025; 87635; 93005; 99284; A9270; 93010; 99282; U0002

== ENCOUNTER 2021-07-21 21:36 | Emergency (ER) | payer MEDICAID ==
[2021-07-21 22:33] VITALS: BP 118/56; PULSE 85
[2021-07-21 22:40] LABS: CORONAVIRUS COVID-19 NAA NEGATIVE (NEGATIVE); INFLUENZA A NAA NEGATIVE (NEGATIVE); INFLUENZA B NAA NEGATIVE (NEGATIVE)
[2021-07-21] MEDS ORDERED: Ketorolac 30 MG/ML SDV IM ONE (23:19)
== END 2021-07-22 00:14 | disposition home or self-care (01) ==
LOC: MW.ED 21:36
DX: M94.0 Chondrocostal junction syndrome [Tietze] (principal); Z20.822 Contact with and (suspected) exposure to COVID-19
CPT/HCPCS: 0240U; 71045; 71045-26; 93005; 96372; 99284-25; J1885

== ENCOUNTER 2023-11-19 13:12 | Emergency (ER) | payer MEDICAID ==
[2023-11-19] MEDS ORDERED: Naloxone 0.4 MG/ML SDV IVPUSH PRN (13:48)
[2023-11-19 13:50] VITALS: BP 127/67
[2023-11-19] MEDS: Ketorolac 30 MG/ML SDV IVPUSH ONE (13:55)
[2023-11-19] MEDS: Morphine 2 MG/ML SYRINGE IVPUSH PRN (13:55)
[2023-11-19 14:00] LABS: BASOPHILS ABSOLUTE AUTO 0.02 K/uL (0.00-0.20); BASOPHILS PERCENT AUTO 0.4 % (0.0-1.0); EOSINOPHILS ABSOLUTE AUTO 0.03 K/uL (0.00-0.45); EOSINOPHILS PERCENT AUTO 0.6 % (0.0-6.0); HEMOGLOBIN 14.2 g/dL (12.0-16.0); IMMATURE GRAN ABSOLUTE AUTO 0.01 K/uL (0.00-0.05); IMMATURE GRAN PERCENT AUTO 0.2 % (0.0-0.4); LYMPHOCYTES ABSOLUTE AUTO 1.63 K/uL (1.00-4.80); LYMPHOCYTES PERCENT AUTO 33.4 % (24.0-44.0); MEAN CORPUSCULAR HEMOGLOBIN 31.3 pg (28.0-32.0); MEAN CORPUSCULAR HGB CONC 35.5 g/dL (32.0-36.0); MEAN CORPUSCULAR VOLUME 88.3 fL (83.0-99.0); MEAN PLATELET VOLUME 10.1 fL (9.4-12.3); MONOCYTES ABSOLUTE AUTO 0.28 K/uL (0.00-0.80); MONOCYTES PERCENT AUTO 5.7 % (0.0-8.0); NEUTROPHILS ABSOLUTE AUTO 2.91 K/uL (1.80-7.70); NEUTROPHILS PERCENT AUTO 59.7 % (41.0-71.0); PLATELET COUNT,PLT 223 K/uL (150-400); RED BLOOD CELL COUNT 4.53 M/uL (4.10-5.30); WHITE BLOOD CELL COUNT,WBC 4.88 K/uL (3.9-11.3)
[2023-11-19] MEDS: Sodium Chloride 0.9% 10 ML Syringe FLUSH PRN (14:00)
[2023-11-19] MEDS: Sodium Chloride 0.9% 2.5 ML Syringe FLUSH PRN (14:00)
[2023-11-19 14:36] LABS: A/G RATIO 0.9 (0.9-1.6); ALBUMIN 3.6 g/dL (3.4-5.0); BILIRUBIN TOTAL 0.4 mg/dL (0.2-1.0); CALCIUM 8.9 mg/dL (8.5-10.1); CARBON DIOXIDE,CO2 27.1 mmol/L (21.0-32.0); CREATININE 0.6 mg/dL (0.6-1.0); EST CRCL DRUG DOSING (CG) 111.03 mL/min; POTASSIUM,K 3.8 mmol/L (3.5-5.1); PROTEIN TOTAL,TP 7.6 g/dL (6.4-8.2)
[2023-11-19 14:40] LABS: APPEARANCE,URINE SLT CLOUDY; BILIRUBIN,URINE NEGATIVE (NEGATIVE); COLOR,URINE YELLOW; GLUCOSE,URINE NEGATIVE (NEGATIVE); KETONES,URINE NEGATIVE (NEGATIVE); LEUKOCYTE ESTERASE,URINE TRACE (NEGATIVE); NITRITE,URINE NEGATIVE (NEGATIVE); OCCULT BLOOD,URINE NEGATIVE (NEGATIVE); PH,URINE 5.5 (5.0-8.0); PROTEIN,URINE NEGATIVE (NEGATIVE); UROBILINOGEN,URINE 0.2 EU/dL (<2.0)
[2023-11-19 14:58] LABS: BACTERIA,URINE 4+ (NEGATIVE); EPITHELIAL CELLS,URINE FEW (NONE-FEW); RBC,URINE 0-2 (0-2/HPF)
[2023-11-19] MEDS: Cephalexin 500 MG Cap PO ONE (17:01)
[2023-11-19] MEDS: predniSONE 20 MG Tab PO ONE (17:01)
[2023-11-19 17:06] VITALS: PULSE 76
== END 2023-11-19 17:03 | disposition home or self-care (01) ==
LOC: MW.ED 13:12
DX: M54.50 Low back pain, unspecified (principal); Z75.8 Other problems related to medical facilities and other health care; Z79.899 Other long term (current) drug therapy; Z90.710 Acquired absence of both cervix and uterus
CPT/HCPCS: 36415; 74176; 80053; 81001; 83690; 85025; 96374; 96375; 96376; 99284; A9270; J1885; J2270; J3490

== ENCOUNTER 2024-03-10 20:01 | Emergency (ER) | payer MEDICAID ==
[2024-03-10 22:30] LABS: APPEARANCE,URINE CLEAR; BILIRUBIN,URINE NEGATIVE (NEGATIVE); COLOR,URINE YELLOW; GLUCOSE,URINE NEGATIVE (NEGATIVE); KETONES,URINE NEGATIVE (NEGATIVE); LEUKOCYTE ESTERASE,URINE NEGATIVE (NEGATIVE); NITRITE,URINE NEGATIVE (NEGATIVE); OCCULT BLOOD,URINE NEGATIVE (NEGATIVE); PROTEIN,URINE NEGATIVE (NEGATIVE); UROBILINOGEN,URINE 0.2 EU/dL (<2.0)
[2024-03-10 23:33] LABS: BASOPHILS ABSOLUTE AUTO 0.02 K/uL (0.00-0.20); BASOPHILS PERCENT AUTO 0.3 % (0.0-1.0); EOSINOPHILS ABSOLUTE AUTO 0.09 K/uL (0.00-0.45); EOSINOPHILS PERCENT AUTO 1.3 % (0.0-6.0); HEMATOCRIT 39.9 % (37.0-47.0); IMMATURE GRAN ABSOLUTE AUTO 0.01 K/uL (0.00-0.05); IMMATURE GRAN PERCENT AUTO 0.1 % (0.0-0.4); LYMPHOCYTES ABSOLUTE AUTO 2.35 K/uL (1.00-4.80); LYMPHOCYTES PERCENT AUTO 33.5 % (24.0-44.0); MEAN CORPUSCULAR HEMOGLOBIN 30.4 pg (28.0-32.0); MEAN CORPUSCULAR HGB CONC 35.1 g/dL (32.0-36.0); MEAN CORPUSCULAR VOLUME 86.6 fL (83.0-99.0); MEAN PLATELET VOLUME 9.5 fL (9.4-12.3); MONOCYTES ABSOLUTE AUTO 0.48 K/uL (0.00-0.80); MONOCYTES PERCENT AUTO 6.8 % (0.0-8.0); NEUTROPHILS ABSOLUTE AUTO 4.06 K/uL (1.80-7.70); PLATELET COUNT,PLT 226 K/uL (150-400); RED BLOOD CELL COUNT 4.61 M/uL (4.10-5.30); WHITE BLOOD CELL COUNT,WBC 7.01 K/uL (3.9-11.3)
[2024-03-11 00:01] LABS: ALBUMIN 3.7 g/dL (3.4-5.0); BILIRUBIN TOTAL 0.5 mg/dL (0.2-1.0); C-REACTIVE PROTEIN 0.11 mg/dL (<0.3); CALCIUM 8.7 mg/dL (8.5-10.1); CARBON DIOXIDE,CO2 29.5 mmol/L (21.0-32.0); CREATININE 0.6 mg/dL (0.6-1.0); EST CRCL DRUG DOSING (CG) 111.03 mL/min; POTASSIUM,K 3.1 mmol/L (3.5-5.1); PROTEIN TOTAL,TP 7.4 g/dL (6.4-8.2)
[2024-03-11] MEDS: Dexamethasone 4 MG/ML SDV IVPUSH ONE (00:52)
[2024-03-11] MEDS: Ketorolac 30 MG/ML SDV IVPUSH ONE (00:53)
[2024-03-11] MEDS: Lidocaine 4% 1 each Patch TOP STA (00:54)
[2024-03-11] MEDS: Potassium Chloride 20 MEQ Tab.ER PO ONE (00:54)
[2024-03-11] MEDS: Sodium Chloride 0.9% 10 ML Syringe FLUSH PRN (01:12)
[2024-03-11 02:16] VITALS: BP 99/53; PULSE 76
== END 2024-03-11 02:21 | disposition home or self-care (01) ==
LOC: MW.ED 20:01
DX: M54.6 Pain in thoracic spine (principal); E87.6 Hypokalemia; R10.9 Unspecified abdominal pain; Z90.49 Acquired absence of other specified parts of digestive tract; Z79.899 Other long term (current) drug therapy; Z87.448 Personal history of other diseases of urinary system
CPT/HCPCS: 36415; 74176; 80053; 81003; 81025; 85025; 85652; 86140; 96374; 96375; 99284; A9270; J1100; J1885; J3490